=== PATIENT | female | born 2000 | race Caucasian/White ===

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

== ENCOUNTER 2022-04-01 09:43 | Emergency (ER) | payer MEDICAID ==
[~2022-04-01] VITALS: Ht 154.9 cm; Wt 74.8 kg
[2022-04-01 09:47] VITALS: BP 116/69
[2022-04-01 09:55] LABS: BILIRUBIN,URINE 2+ (NEGATIVE); CLARITY,URINE TURBID; COLOR,URINE YELLOW; GLUCOSE, URINE (UA) NEGATIVE (NEGATIVE); KETONES,URINE TRACE (NEGATIVE); LEUKOCYTE ESTERASE ,URINE NEGATIVE (NEGATIVE); NITRITE,URINE NEGATIVE (NEGATIVE); PH,URINE 6.5 (5-9); PROTEIN,URINE 1+ (NEGATIVE)
[2022-04-01] MEDS ORDERED: FAMOTIDINE 20 MG (PEPCID) TABLET PO STA (09:55)
[2022-04-01] MEDS ORDERED: PROMETHAZINE INJ 25 MG/ML (PHENERGAN) AMP IVP ONE (10:00)
[2022-04-01] MEDS ORDERED: D5 NS 1000 ML IV SOLUTION 1,000 ML IV ONE (10:00)
--- NOTE | 2022-04-01 10:00 | ED GI ---
General Chief Complaint: Abdominal/GI Problems Stated Complaint: VOMITING Source of Information: Patient Exam Limitations: No Limitations History of Present Illness Date Seen by Provider: Apr 01, 2022 Time Seen by Provider: 09:44 Initial Comments 22-year-old female with past medical history of chronic nausea coming in due to nausea and nonbloody nonbilious vomiting. She says she has been dealing with this intermittently for the past 3 years. She says she has been to the ER numerous times and had multiple CT scans and ultrasounds. She has had an upper GI scope as well which they found a hiatal hernia. She only takes omeprazole daily. This most recent episode started a couple days ago. Was able to get some yogurt down yesterday, but mostly has just been drinking water with no food. Has had some loose stools since she is only drinking water. Denies any cough, fever, chest pain, shortness of breath, rash, dysuria, or any other concerns. She says this feels similar to other episodes. She does have some abdominal cramping with it which improves after vomiting. Has Phenergan at home, but says she is unable to keep it down. LMP was 2 days ago. Allergies and Home Medications Allergies Coded Allergies: No Known Drug Allergies (Unverified , 03/16/19) Patient Home Medication List Home Medication List Reviewed: Yes Amoxicillin (Amoxicillin) 500 Mg Capsule, (Reported) Entered as Reported by: DENILSON STEVENS on 12/05/201955 Ibuprofen (Ibuprofen) 800 Mg Tablet, 800 MG PO Q8H PRN for PAIN Prescribed by: DIANE CHARLES on 11/26/20 09 Metronidazole (Metronidazole) 500 Mg Tablet, (Reported) Entered as Reported by: DENILSON STEVENS on 12/05/201955 Ondansetron (Ondansetron Odt) 4 Mg Tab.rapdis, 4 MG PO Q6H PRN for NAUSEA/VOMITING Prescribed by: DIANE CHARLES on 03/16/192117 Ondansetron (Ondansetron Odt) 4 Mg Tab.rapdis, 4 MG SL Q4H PRN for NAUSEA/VOMITING Prescribed by: PAULINE TORREZ on 07/01/21 0930 Ondansetron (Ondansetron Odt) 4 Mg Tab.rapdis, 4 MG PO Q6H PRN for NAUSEA/VOMITING-1ST LINE Prescribed by: WILEY LOZOYA on 09/29/21 0634 Ondansetron HCl (Ondansetron HCl) 4 Mg Tablet, (Reported) Entered as Reported by: DENILSON STEVENS on 12/05/201955 Pantoprazole Sodium (Pantoprazole Sodium) 40 Mg Tablet., (Reported) Entered as Reported by: DENILSON STEVENS on 12/05/201955 Promethazine HCl (Promethazine Tablet) 25 Mg Tablet, 25 MG PO Q6H PRN for AILEEN SEA/VOMITING-2ND LINE Prescribed by: WILEY LOZOYA on 09/29/21 0642 Promethazine HCl (Promethazine Tablet) 25 Mg Tablet, 25 MG PO Q6H PRN for NAUSEA/VOMITING Prescribed by: WILEY LOZOYA on 11/07/21 0818 Review of Systems Review of Systems Constitutional: No fever EENTM: No Blurred Vision Respiratory: Denies Cough Cardiovascular: Denies Chest Pain Gastrointestinal: Nausea, Vomiting Genitourinary: No Symptoms Reported Musculoskeletal: no symptoms reported Skin: no symptoms reported Psychiatric/Neurological: No Symptoms Reported Endocrine: No Symptoms Reported Hematologic/Lymphatic: No Symptoms Reported All Other Systems Reviewed Negative Unless Noted: Yes Past Uryvkzm-Yhhoad-Mpffop Hx Patient Social History Use of E-Cig and/or Vaping dev: Yes Immunizations Up To Date Tetanus Booster (TDap): Unknown PED Vaccines UTD: Yes First/Initial COVID19 Vaccinat: 01/2021 Second COVID19 Vaccination Eligio: 01/2021 Seasonal Allergies Seasonal Allergies: No Past Medical History Surgery/Hospitalization HX: HIATAL HERNIA Surgeries: Yes (D&C) Respiratory: No Cardiac: No Neurological: No Genitourinary: No Gastrointestinal: Yes Gastroesophageal Reflux, Hiatal Hernia Musculoskeletal: No Endocrine: No HEENT: No Cancer: No Psychosocial: No Integumentary: No Blood Disorders: No Physical Exam Vital Signs Vital Signs - First Documented 04/01/22 09:47 Temp 36.2 Pulse 88 Resp 16 B/P (MAP) 116/69 (85) Pulse Ox 98 O2 Delivery Room Air Capillary Refill : Height/Weight/BMI Height: 5'1.00" Weight: 140lbs. oz. 63.720495gh; 34.00 BMI Method:Stated General Appearance: WD/WN, no apparent distress HEENT: PERRL/EOMI, normal ENT inspection, pharynx normal Neck: non-tender, full range of motion, supple, normal inspection Respiratory: chest non-tender, lungs clear, normal breath sounds, no respiratory distress, no accessory muscle use Cardiovascular: regular rate, rhythm, no edema, no murmur Gastrointestinal: normal bowel sounds, non tender, soft; No distended, No guarding, No rebound Extremities: normal range of motion, non-tender, normal inspection, no pedal edema, no calf tenderness, normal capillary refill Back: normal inspection, no CVA tenderness Neurologic/Psychiatric: no motor/sensory deficits, alert, normal mood/affect Skin: normal color, warm/dry Lymphatic: no adenopathy Progress/Results/Core Measures Results/Orders Lab Results Laboratory Tests Test 04/01/22 09:46 04/01/22 10:00 Range/Units Urine Color YELLOW Urine Clarity TURBID Urine pH 6.5 5-9 Urine Specific Whittaker 1.025 H 1.016-1.022 Urine Protein 1+ H NEGATIVE Urine Glucose (UA) NEGATIVE NEGATIVE Urine Ketones TRACE H NEGATIVE Urine Nitrite NEGATIVE NEGATIVE Urine Bilirubin 2+ H NEGATIVE Urine Urobilinogen 1.0 < = 1.0 MG/DL Urine Leukocyte Esterase NEGATIVE NEGATIVE Urine RBC (Auto) TRACE-I H NEGATIVE Urine RBC NONE /HPF Urine WBC 0-2 /HPF Urine Squamous Epithelial Cells 10-25 H /HPF Urine Crystals NONE /LPF Urine Bacteria TRACE /HPF Urine Casts NONE /LPF Urine Mucus NEGATIVE /LPF Urine Culture Indicated NO Urine Opiates Screen NEGATIVE NEGATIVE Urine Oxycodone Screen NEGATIVE NEGATIVE Urine Methadone Screen NEGATIVE NEGATIVE Urine Propoxyphene Screen NEGATIVE NEGATIVE Urine Barbiturates Screen NEGATIVE NEGATIVE Ur Tricyclic Antidepressants Screen NEGATIVE NEGATIVE Urine Phencyclidine Screen NEGATIVE NEGATIVE Urine Amphetamines Screen NEGATIVE NEGATIVE Urine Methamphetamines Screen NEGATIVE NEGATIVE Urine Benzodiazepines Screen NEGATIVE NEGATIVE Urine Cocaine Screen NEGATIVE NEGATIVE Urine Cannabinoids Screen POSITIVE H NEGATIVE White Blood Count 9.7 4.3-11.0 10^3/uL Red Blood Count 4.23 3.80-5.11 10^6/uL Hemoglobin 12.4 11.5-16.0 g/dL Hematocrit 36 35-52 % Mean Corpuscular Volume 85 80-99 fL Mean Corpuscular Hemoglobin 29 25-34 pg Mean Corpuscular Hemoglobin Concent 34 32-36 g/dL Red Cell Distribution Width 12.3 10.0-14.5 % Platelet Count 229 130-400 10^3/uL Mean Platelet Volume 11.2 9.0-12.2 fL Immature Granulocyte % (Auto) 0 % Neutrophils (%) (Auto) 68 42-75 % Lymphocytes (%) (Auto) 22 12-44 % Monocytes (%) (Auto) 9 0-12 % Eosinophils (%) (Auto) 0 0-10 % Basophils (%) (Auto) 0 0-10 % Neutrophils # (Auto) 6.7 1.8-7.8 10^3/uL Lymphocytes # (Auto) 2.2 1.0-4.0 10^3/uL Monocytes # (Auto) 0.9 0.0-1.0 10^3/uL Eosinophils # (Auto) 0.0 0.0-0.3 10^3/uL Basophils # (Auto) 0.0 0.0-0.1 10^3/uL Immature Granulocyte # (Auto) 0.0 0.0-0.1 10^3/uL Sodium Level 140 135-145 MMOL/L Potassium Level 3.1 L 3.6-5.0 MMOL/L Chloride Level 104 98-107 MMOL/L Carbon Dioxide Level 24 21-32 MMOL/L Anion Gap 12 5-14 MMOL/L Blood Urea Nitrogen 10 7-18 MG/DL Creatinine 0.65 0.60-1.30 MG/DL Estimat Glomerular Filtration Rate 129 BUN/Creatinine Ratio 15 Glucose Level 104 70-105 MG/DL Calcium Level 9.2 8.5-10.1 MG/DL Corrected Calcium 9.1 8.5-10.1 MG/DL Total Bilirubin 0.5 0.1-1.0 MG/DL Aspartate Amino Transf (AST/SGOT) 12 5-34 U/L Alanine Aminotransferase (ALT/SGPT) 10 0-55 U/L Alkaline Phosphatase 72 40-136 U/L C-Reactive Protein 0.47 <0.50 MG/DL Total Protein 7.1 6.4-8.2 GM/DL Albumin 4.1 3.2-4.5 GM/DL Lipase 19 8-78 U/L My Orders Orders - WILEY LOZOYA MD Drug Screen Stat (Urine) (04/01/22 09:49) Ua Culture If Indicated (04/01/22 09:49) Urine Bedside (04/01/22 09:49) Cbc With Automated Diff (04/01/22 09:55) Comprehensive Metabolic Panel (04/01/22 09:55) Lipase (04/01/22 09:55) Crp Fs (04/01/22 09:55) Famotidine Tablet (Pepcid Tablet) (04/01/22 09:55) Ed Iv/Invasive Line Start (04/01/22 09:55) D5 Ns 1000 Ml Iv Solution (Dextrose 5%/0 (04/01/22 10:00) Promethazine Injection (Phenergan Injec (04/01/22 10:00) Medications Given in ED Current Medications Medications Dose Ordered Sig/Natali Route Start Time Stop Time Status Last Admin Dose Admin Dextrose/Sodium Chloride 1,000 ml @ 0 mls/hr Q0M ONCE IV 04/01/22 10:00 04/01/22 10:01 DC 04/01/22 10:06 1,000 MLS/HR Promethazine HCl 25 mg ONCE ONCE IVP 04/01/22 10:00 04/01/22 10:01 DC 04/01/22 10:06 25 MG Vital Signs/I&O 04/01/22 09:47 Temp 36.2 Pulse 88 Resp 16 B/P (MAP) 116/69 (85) Pulse Ox 98 O2 Delivery Room Air Progress Progress Note : Progress Note 22-year-old female with essentially cyclical vomiting coming in due to vomiting. ABCs were intact and vitals were stable on presentation. Physical exam reassuring including a soft and nontender abdomen. An IV was placed and basic labs were obtained and were significant for normal white blood cell count, and a CRP that is normal. Urinalysis with some blood and ketones but no signs of infection. She was given a liter of IV fluids as well as IV Phenergan with improvement in symptoms. test negative. Departure Impression Primary Impression: Cyclical vomiting with nausea Disposition: 01 HOME, SELF-CARE Condition: Stable Departure-Patient Inst. Referrals: ELDA BAUMAN MD (PCP) Primary Care Physician Patient Instructions: Nausea and Vomiting, Adult ED Add. Discharge Instructions: Try the Phenergan oral first, if he cannot keep it down then you can try the suppository. You can also try the [id number]-mqpvvsh Capzasin HP. Put a small dab on your abdomen and give it some time to work. You will have a tingling/slight burning sensation which means it is working. Your potassium was slightly low, so take your home potassium supplement for the next couple of days. Scripts Promethazine HCl (Promethazine Suppository) 25 Mg Supp.rect 25 MG RC Q6H PRN for NAUSEA/VOMITING-2ND LINE for 5 Days, #20 SUPP.RECT Do not mix with the oral promethazine. Take this if you cannot keep medicine down. Prov: WILEY LOZOYA MD 04/01/22 Promethazine HCl (Promethazine Tablet) 25 Mg Tablet 25 MG PO Q6H PRN for NAUSEA/VOMITING for 5 Days, #20 TAB 0 Refills Prov: WILEY LOZOYA MD 04/01/22 Work/School Note: Work Release Form Date Seen in the Emergency Department: Apr 01, 2022 Return to Work: Apr 02, 2022 Restrictions: No Restrictions WILEY LOZOYA MD Apr 01, 2022 10:00
[2022-04-01 10:15] LABS: BACTERIA,URINE TRACE /HPF; WBC,URINE 0-2 /HPF
[2022-04-01 10:17] LABS: BASOPHILS % (AUTO) 0 % (0-10); EOSINOPHILS % (AUTO) 0 % (0-10); HEMATOCRIT 36 % (35-52); HEMOGLOBIN 12.4 g/dL (11.5-16.0); LYMPHOCYTES # (AUTO) 2.2 10^3/uL (1.0-4.0); LYMPHOCYTES % (AUTO) 22 % (12-44); MEAN CORPUSCULAR HEMOGLOBIN 29 pg (25-34); MEAN CORPUSCULAR HGB CONC 34 g/dL (32-36); MEAN CORPUSCULAR VOLUME 85 fL (80-99); MEAN PLATELET VOLUME 11.2 fL (9.0-12.2); MONOCYTES # (AUTO) 0.9 10^3/uL (0.0-1.0); MONOCYTES % (AUTO) 9 % (0-12); NEUTROPHILS # (AUTO) 6.7 10^3/uL (1.8-7.8); NEUTROPHILS % (AUTO) 68 % (42-75); PLATELET COUNT 229 10^3/uL (130-400); WHITE BLOOD COUNT 9.7 10^3/uL (4.3-11.0)
[2022-04-01 10:25] LABS: AMPHETAMINE SCREEN, URINE NEGATIVE (NEGATIVE); BARBITURATE SCREEN URINE NEGATIVE (NEGATIVE); BENZODIAZEPINES SCREEN URINE NEGATIVE (NEGATIVE); CANNABINOID SCREEN, URINE POSITIVE (NEGATIVE); COCAINE SCREEN URINE NEGATIVE (NEGATIVE); METHADONE STAT NEGATIVE (NEGATIVE); OPIATE SCREEN URINE NEGATIVE (NEGATIVE); OXYCODONE STAT NEGATIVE (NEGATIVE); PROPOXYPHENE STAT NEGATIVE (NEGATIVE); TRICYCLIC ANTIDEPRESSANTS SCRE NEGATIVE (NEGATIVE)
[2022-04-01 10:38] LABS: POTASSIUM 3.1 MMOL/L (3.6-5.0)
[2022-04-01 10:39] LABS: ALBUMIN 4.1 GM/DL (3.2-4.5); BILIRUBIN,TOTAL 0.5 MG/DL (0.1-1.0); CALCIUM 9.2 MG/DL (8.5-10.1); CREATININE SERUM 0.65 MG/DL (0.60-1.30); TOTAL PROTEIN 7.1 GM/DL (6.4-8.2)
[2022-04-01] MEDS ORDERED: PROM25SU44 RC (10:49)
[2022-04-01] MEDS ORDERED: PROM25TA14 PO (10:49)
== END 2022-04-01 10:50 | disposition home or self-care (01) ==
LOC: EDUNIT# 09:43 → ER FS 09:44
DX: R11.15 Cyclical vomiting syndrome unrelated to migraine (principal); K21.9 Gastro-esophageal reflux disease without esophagitis; F17.290 Nicotine dependence, other tobacco product, uncomplicated; Z79.899 Other long term (current) drug therapy
CPT/HCPCS: 36415; 80053; 80306; 81000; 83690; 84703; 85025; 86141

== ENCOUNTER 2022-04-06 07:51 | Emergency (ER) | payer MEDICAID ==
[~2022-04-06] VITALS: Ht 154 cm; Wt 69.0 kg
[~2022-04-06 07:51] MED LIST changes: +PROM25SU44 RC
[2022-04-06 08:09] VITALS: BP 109/84
[2022-04-06] MEDS ORDERED: PANTOPRAZOLE 40 MG (PROTONIX) VIAL IV STA (08:13)
[2022-04-06] MEDS ORDERED: PROMETHAZINE INJ 25 MG/ML (PHENERGAN) AMP IVP STA (08:13)
[2022-04-06] MEDS ORDERED: NS IV 1000 ML 1,000 ML IV STA ×2 (08:13→09:12)
[2022-04-06] MEDS ORDERED: KETOROLAC 30 MG/ML VIAL IVP STA (08:13)
[2022-04-06 08:20] LABS: BASOPHILS # (AUTO) 0.1 10^3/uL (0.0-0.1); BASOPHILS % (AUTO) 0 % (0-10); EOSINOPHILS % (AUTO) 0 % (0-10); HEMATOCRIT 43 % (35-52); HEMOGLOBIN 15.6 g/dL (11.5-16.0); LYMPHOCYTES # (AUTO) 1.6 10^3/uL (1.0-4.0); LYMPHOCYTES % (AUTO) 11 % (12-44); MEAN CORPUSCULAR HEMOGLOBIN 30 pg (25-34); MEAN CORPUSCULAR HGB CONC 36 g/dL (32-36); MEAN CORPUSCULAR VOLUME 82 fL (80-99); MEAN PLATELET VOLUME 10.1 fL (9.0-12.2); MONOCYTES # (AUTO) 0.8 10^3/uL (0.0-1.0); MONOCYTES % (AUTO) 6 % (0-12); NEUTROPHILS # (AUTO) 12.3 10^3/uL (1.8-7.8); NEUTROPHILS % (AUTO) 83 % (42-75); PLATELET COUNT 335 10^3/uL (130-400); WHITE BLOOD COUNT 14.9 10^3/uL (4.3-11.0)
--- NOTE | 2022-04-06 08:22 | ED GI ---
General Chief Complaint: Abdominal/GI Problems Stated Complaint: VOMITING Source of Information: Patient, Old Records History of Present Illness Date Seen by Provider: Apr 06, 2022 Time Seen by Provider: 08:08 Initial Comments 22-year-old female presenting with complaints of recurrent nausea, vomiting, abdominal pain. She states that she has had episodes like this for at least 3 years. She feels like her primary doctor is not doing anything to help her and refuses to refer her to a GI specialist. Patient was seen on April 01 for recurrent symptoms at that time. She states that ever since she was seen she has continued to have vomiting and abdominal pain. She claims that she cannot keep anything down and she has not been able to sleep because of her symptoms. Both patient and family in the room are stating that "something needs to get figured out". Family member in the room claims that they are trying to get her up to [place] to see a specialist but have not been able to do it because they report that the primary care has not referred them. She states that she has no new symptoms or change from her usual presentation. She has had multiple imaging tests and blood work done in the past. She does tend to run low on her potassium with her frequent episodes of nausea and vomiting. Timing/Duration: 1 Week Severity/Quality: Severe, Burning, Cramping, Sharp Location: Generalized Abdomen Activities at Onset: None Modifying Factors: Worsens With Eating, Worsens With Palpation Associated Symptoms: No Back Pain, No Chest Pain, No Diaphoresis, No Fever/Chills, No Fatigue, No Headache; Heartburn, Nausea/Vomiting; No Rash, No Shortness of Air, No Swelling/Mass in Abdomen, No Syncope, No Weakness Allergies and Home Medications Allergies Coded Allergies: No Known Drug Allergies (Unverified , 03/16/19) Patient Home Medication List Home Medication List Reviewed: Yes Amoxicillin (Amoxicillin) 500 Mg Capsule, (Reported) Entered as Reported by: DENILSON STEVENS on 12/05/201955 Ibuprofen (Ibuprofen) 800 Mg Tablet, 800 MG PO Q8H PRN for PAIN Prescribed by: DIANE CHARLES on 11/26/20 0952 Metronidazole (Metronidazole) 500 Mg Tablet, (Reported) Entered as Reported by: DENILSON STEVENS on 12/05/201955 Ondansetron (Ondansetron Odt) 4 Mg Tab.rapdis, 4 MG PO Q6H PRN for NAUSEA/VOMITING Prescribed by: DIANE TEJADAYART on 03/16/19 2118 Ondansetron (Ondansetron Odt) 4 Mg Tab.rapdis, 4 MG SL Q4H PRN for NAUSEA/VOMITING Prescribed by: PAULINE TORREZ on 07/01/21 0930 Ondansetron (Ondansetron Odt) 4 Mg Tab.rapdis, 4 MG PO Q6H PRN for NAUSEA/VOMITING-1ST LINE Prescribed by: WILEY LOZOYA on 09/29/21 0634 Ondansetron (Ondansetron Odt) 4 Mg Tab.rapdis, 4 MG PO Q6H PRN for NAUSEA/VOMITING Prescribed by: DIANE CARREONRT on 04/06/22 100 Ondansetron HCl (Ondansetron HCl) 4 Mg Tablet, (Reported) Entered as Reported by: DENILSON STEVENS on 12/05/201955 Pantoprazole Sodium (Pantoprazole Sodium) 40 Mg Tablet.dr (Reported) Entered as Reported by: DENILSON STEVENS on 12/05/201955 Promethazine HCl (Promethazine Tablet) 25 Mg Tablet, 25 MG PO Q6H PRN for NAUSEA/VOMITING-2ND LINE Prescribed by: WILEY LOZOYA on 09/29/21 0642 Promethazine HCl (Promethazine Tablet) 25 Mg Tablet, 25 MG PO Q6H PRN for NAUSEA/VOMITING Prescribed by: WILEY LOZOYA on 04/01/22 1049 Promethazine HCl (Promethazine Suppository) 25 Mg Supp.rect, 25 MG RC Q6H PRN for NAUSEA/VOMITING-2ND LINE Prescribed by: WILEY LOZOYA on 04/01/22 1049 Review of Systems Review of Systems Constitutional: No chills, No fever EENTM: No Symptoms Reported Respiratory: No Symptoms Reported Cardiovascular: Denies Palpitations, Denies Syncope Gastrointestinal: See HPI Genitourinary: Denies Pain Musculoskeletal: no symptoms reported Skin: No rash Psychiatric/Neurological: Denies Headache Endocrine: No Symptoms Reported Hematologic/Lymphatic: No Symptoms Reported Past Lotnpbo-Wzqlyb-Shhpfs Hx Patient Social History Tobacco Use?: Yes Use of E-Cig and/or Vaping dev: Yes E-Cig or Vaping type used: Nicotine Substance use?: Yes Substance type: Marijuana Substance frequency: Several times a month Alcohol Use?: No Immunizations Up To Date Tetanus Booster (TDap): Unknown PED Vaccines UTD: Yes First/Initial COVID19 Vaccinat: 01/2021 Second COVID19 Vaccination Eligio: 01/2021 Third COVID19 Vaccination Date: 01/2021 Seasonal Allergies Seasonal Allergies: No Past Medical History Surgery/Hospitalization HX: HIATAL HERNIA,Cyclic Vomiting Surgeries: Yes (D&C) Respiratory: No Cardiac: No Neurological: No Genitourinary: No Gastrointestinal: Yes Gastroesophageal Reflux, Hiatal Hernia Musculoskeletal: No Endocrine: No HEENT: No Cancer: No Psychosocial: No Integumentary: No Blood Disorders: No Physical Exam Vital Signs Vital Signs - First Documented 04/06/22 08:09 Temp 36.5 Pulse 87 Resp 16 B/P (MAP) 109/84 (92) Pulse Ox 97 O2 Delivery Room Air Capillary Refill : Height/Weight/BMI Height: 5'1.00" Weight: 140lbs. oz. 63.217866sx; 31.00 BMI Method:Stated General Appearance: WD/WN, mild distress HEENT: PERRL/EOMI, pharynx normal Neck: non-tender, full range of motion, supple, normal inspection Respiratory: chest non-tender, lungs clear, normal breath sounds, no respiratory distress, no accessory muscle use Cardiovascular: normal peripheral pulses, regular rate, rhythm; No tachycardia Gastrointestinal: normal bowel sounds, soft, no pulsatile mass; No distended; guarding; No rebound; tenderness (Diffuse) Rectal: deferred Extremities: normal range of motion, non-tender, normal capillary refill Neurologic/Psychiatric: rn ante partum II-XII nml as tested, alert, oriented x 3, other (Flat affect) Skin: normal color, warm/dry Progress/Results/Core Measures Results/Orders Lab Results Laboratory Tests Test 04/06/22 08:00 Range/Units White Blood Count 14.9 H 4.3-11.0 10^3/uL Red Blood Count 5.28 H 3.80-5.11 10^6/uL Hemoglobin 15.6 # 11.5-16.0 g/dL Hematocrit 43 35-52 % Mean Corpuscular Volume 82 80-99 fL Mean Corpuscular Hemoglobin 30 25-34 pg Mean Corpuscular Hemoglobin Concent 36 32-36 g/dL Red Cell Distribution Width 11.9 10.0-14.5 % Platelet Count 335 130-400 10^3/uL Mean Platelet Volume 10.1 9.0-12.2 fL Immature Granulocyte % (Auto) 1 % Neutrophils (%) (Auto) 83 H 42-75 % Lymphocytes (%) (Auto) 11 L 12-44 % Monocytes (%) (Auto) 6 0-12 % Eosinophils (%) (Auto) 0 0-10 % Basophils (%) (Auto) 0 0-10 % Neutrophils # (Auto) 12.3 H 1.8-7.8 10^3/uL Lymphocytes # (Auto) 1.6 1.0-4.0 10^3/uL Monocytes # (Auto) 0.8 0.0-1.0 10^3/uL Eosinophils # (Auto) 0.0 0.0-0.3 10^3/uL Basophils # (Auto) 0.1 0.0-0.1 10^3/uL Immature Granulocyte # (Auto) 0.1 0.0-0.1 10^3/uL Neutrophils % (Manual) 88 % Lymphocytes % (Manual) 1 % Monocytes % (Manual) 1 % Sodium Level 137 135-145 MMOL/L Potassium Level 3.1 L 3.6-5.0 MMOL/L Chloride Level 94 L 98-107 MMOL/L Carbon Dioxide Level 26 21-32 MMOL/L Anion Gap 17 H 5-14 MMOL/L Blood Urea Nitrogen 16 7-18 MG/DL Creatinine 0.77 0.60-1.30 MG/DL Estimat Glomerular Filtration Rate 113 BUN/Creatinine Ratio 21 Glucose Level 97 70-105 MG/DL Calcium Level 9.6 8.5-10.1 MG/DL Corrected Calcium 8.5-10.1 MG/DL Total Bilirubin 0.8 0.1-1.0 MG/DL Aspartate Amino Transf (AST/SGOT) 12 5-34 U/L Alanine Aminotransferase (ALT/SGPT) 11 0-55 U/L Alkaline Phosphatase 75 40-136 U/L C-Reactive Protein 0.60 H <0.50 MG/DL Total Protein 7.9 6.4-8.2 GM/DL Albumin 4.6 H 3.2-4.5 GM/DL Lipase 29 8-78 U/L Serum Test, Qualitative NEGATIVE NEGATIVE My Orders Orders - DIANE CHARLES MD Comprehensive Metabolic Panel (04/06/22 08:13) Lipase (04/06/22 08:13) Ed Iv/Invasive Line Start (04/06/22 08:13) Cbc With Automated Diff (04/06/22 08:13) Crp Fs (04/06/22 08:13) Ns Iv 1000 Ml (Sodium Chloride 0.9%) (04/06/22 08:13) Promethazine Injection (Phenergan Injec (04/06/22 08:13) Ketorolac Injection (Toradol Injection) (04/06/22 08:13) Pantoprazole Injection (Protonix Injecti (04/06/22 08:13) Hcg,Qualitative Serum (04/06/22 08:20) Manual Differential (04/06/22 08:00) Ns Iv 1000 Ml (Sodium Chloride 0.9%) (04/06/22 09:12) Potassium Cl 10meq/50ml Ivpb (Kcl 10 Meq (04/06/22 09:12) Ondansetron Injection (Zofran Injectio (04/06/22 09:17) Lorazepam Tablet (Ativan Tablet) (04/06/22 09:17) Vital Signs/I&O 04/06/22 08:09 Temp 36.5 Pulse 87 Resp 16 B/P (MAP) 109/84 (92) Pulse Ox 97 O2 Delivery Room Air Progress Progress Note #1: Progress Note Since patient advises that this feels similar to her usual episodes and there are no new symptoms well defer imaging. Obtain basic labs and electrolytes and urinalysis. Order normal saline 1 L IV fluid bolus for hydration. Pantoprazole 40 mg IV x1 for heartburn and reflux with gastritis. Toradol for diffuse pain. Phenergan 25 mg IV for nausea and vomiting. Advised that from the emergency department she will not be finding a new answers for her chronic symptoms and she will have to see a specialist for that. Progress Note #2: Progress Note She does have mild elevation of her white blood cell count to 14.9 today. Her chemistry panel continues to show hypokalemia at 3.1. She has no acute signs of severe dehydration such as renal failure. She does have mild elevation of her CRP. She had a negative urine test and a negative lipase. She was given a second liter of normal saline and 10 mill equivalents of potassium IV. Progress Note #3: Progress Note Patient had severe burning and irritation from the potassium going IV. She demanded that her IV be removed and she wanted to leave. As she had had no emesis here in the ED will discharge with a prescription for Zofran. Also given name of Dr. Diaz gerber from [facility] that she could try and get in with about her cyclic vomiting. She would either have to go directly to the emergency department at [facility] or have her primary refer her since she has Medicaid. Departure Impression Primary Impression: Cyclical vomiting with nausea Additional Impression: Hypokalemia Disposition: HOME, SELF-CARE Condition: Stable Departure-Patient Inst. Decision time for Depature: 10:02 Referrals: ELDA BAUMAN MD (PCP) Primary Care Physician Patient Instructions: High Potassium Diet, Hypokalemia (DC), Nausea and Vomiting, Adult ED Add. Discharge Instructions: Let your primary care doctor know that you are having worsening symptoms and it was suggested that you get referred to a GI specialist. You would need a re ferral from your primary care provider to be able to go see a GI specialist. Try to continue to sip on fluids and ice chips or popsicles to help get small amounts of fluids in your system at a time. Another thing you could consider doing would be consider going directly to [facility] emergency department and then you might be able to see GI or get help from specialist in the treatment of Cyclic Vomiting Syndrome. Dr. Diaz Gerber is a doctor at that does have some expertise in this area. All discharge instructions reviewed with patient and/or family. Voiced understanding. Scripts Ondansetron (Ondansetron Odt) 4 Mg Tab.rapdis 4 MG PO Q6H PRN for NAUSEA/VOMITING for 5 Days, #20 TAB 0 Refills Prov: DIANE CHARLES MD 04/06/22 DIANE CHARLES MD Apr 06, 2022 08:22
[2022-04-06 08:37] LABS: ALANINE AMINOTRANSFERASE 11 U/L (0-55); ALBUMIN 4.6 GM/DL (3.2-4.5); ALKALINE PHOSPHATASE 75 U/L (40-136); BILIRUBIN,TOTAL 0.8 MG/DL (0.1-1.0); BUN/CREATININE RATIO 21; CALCIUM 9.6 MG/DL (8.5-10.1); CARBON DIOXIDE 26 MMOL/L (21-32); CHLORIDE 94 MMOL/L (98-107); CREATININE SERUM 0.77 MG/DL (0.60-1.30); GFR ESTIMATED 113; GLUCOSE 97 MG/DL (70-105); LIPASE 29 U/L (8-78); POTASSIUM 3.1 MMOL/L (3.6-5.0); SODIUM 137 MMOL/L (135-145); TOTAL PROTEIN 7.9 GM/DL (6.4-8.2)
[2022-04-06 08:47] LABS: LYMPHOCYTES % (MANUAL) 1 %; MONOCYTES % (MANUAL) 1 %; NEUTROPHILS % (MANUAL) 88 %
[2022-04-06] MEDS ORDERED: POTASSIUM CL 10MEQ/50ML IVPB 50 ML IV STA (09:12)
[2022-04-06] MEDS ORDERED: ONDANSETRON 4 MG/2 ML (SDV) Z0FRAN IVP STA (09:17)
[2022-04-06] MEDS ORDERED: LORazepam 0.5 MG (ATIVAN) TABLET PO STA (09:17)
[2022-04-06] MEDS ORDERED: ONDA4TAB11 PO (10:03)
== END 2022-04-06 10:10 | disposition home or self-care (01) ==
LOC: EDUNIT# 07:51 → ER FS 07:53
DX: E87.6 Hypokalemia (principal); R11.15 Cyclical vomiting syndrome unrelated to migraine; R11.0 Nausea; D72.829 Elevated white blood cell count, unspecified; R79.82 Elevated C-reactive protein (CRP); F17.290 Nicotine dependence, other tobacco product, uncomplicated
CPT/HCPCS: 36415; 80053; 83690; 84703; 85007; 85027; 86141

== ENCOUNTER 2022-05-13 13:03 | Emergency (ER) | payer MEDICAID ==
[~2022-05-13] VITALS: Ht 154.9 cm; Wt 71.7 kg
--- NOTE | 2022-05-13 13:13 | ED Abdominal Pain ---
General Chief Complaint: Abdominal/GI Problems Stated Complaint: VOMITING History of Present Illness Date Seen by Provider: May 13, 2022 Time Seen by Provider: 13:13 Initial Comments Pt left without being seen due to not wanting to wait due to busy ER Allergies and Home Medications Allergies Coded Allergies: No Known Drug Allergies (Unverified , 03/16/19) Patient Home Medication List Home Medication List Reviewed: Yes Amoxicillin (Amoxicillin) 500 Mg Capsule, (Reported) Entered as Reported by: DENILSON STEVENS on 12/05/201955 Ibuprofen (Ibuprofen) 800 Mg Tablet, 800 MG PO Q8H PRN for PAIN Prescribed by: DIANE Henry ENYART on 11/26/20 0952 Metronidazole (Metronidazole) 500 Mg Tablet, (Reported) Entered as Reported by: DENILSON STEVENS on 12/05/201955 Ondansetron (Ondansetron Odt) 4 Mg Tab.rapdis, 4 MG PO Q6H PRN for NAUSEA/VOMITING Prescribed by: DIANE Henry ENYART on 03/16/19 2118 Ondansetron (Ondansetron Odt) 4 Mg Tab.rapdis, 4 MG SL Q4H PRN for NAUSEA/VOMITING Prescribed by: PAULINE TORREZ on 07/01/21 0930 Ondansetron (Ondansetron Odt) 4 Mg Tab.rapdis, 4 MG PO Q6H PRN for NAUSEA/VOMITING-1ST LINE Prescribed by: WILEY LOZOYA on 09/29/21 0634 Ondansetron (Ondansetron Odt) 4 Mg Tab.rapdis, 4 MG PO Q6H PRN for NAUSEA/VOMITING Prescribed by: DIANE TEJADAYART on 04/06/22 1003 Ondansetron HCl (Ondansetron HCl) 4 Mg Tablet, (Reported) Entered as Reported by: DENILSON STEVENS on 12/05/201955 Pantoprazole Sodium (Pantoprazole Sodium) 40 Mg Tablet., (Reported) Entered as Reported by: DENILSON STEVENS on 12/05/201955 Promethazine HCl (Promethazine Tablet) 25 Mg Tablet, 25 MG PO Q6H PRN for NAUSEA/VOMITING-2ND LINE Prescribed by: WILEY LOZOYA on 09/29/21 0642 Promethazine HCl (Promethazine Tablet) 25 Mg Tablet, 25 MG PO Q6H PRN for NAUSEA/VOMITING Prescribed by: WILEY LOZOYA on 04/01/22 1049 Promethazine HCl (Promethazine Suppository) 25 Mg Supp.rect, 25 MG RC Q6H PRN for NAUSEA/VOMITING-2ND LINE Prescribed by: WILEY LOZOYA on 04/01/22 1049 Review of Systems Review of Systems Constitutional: no symptoms reported Past Ztiwcar-Sotvjj-Yhudwn Hx Immunizations Up To Date Tetanus Booster (TDap): Unknown PED Vaccines UTD: Yes First/Initial COVID19 Vaccinat: 01/2021 Second COVID19 Vaccination Eligio: 01/2021 Third COVID19 Vaccination Date: 01/2021 Seasonal Allergies Seasonal Allergies: No Past Medical History Surgery/Hospitalization HX: HIATAL HERNIA,Cyclic Vomiting Surgeries: Yes (D&C) Respiratory: No Cardiac: No Neurological: No Genitourinary: No Gastrointestinal: Yes Gastroesophageal Reflux, Hiatal Hernia Musculoskeletal: No Endocrine: No HEENT: No Cancer: No Psychosocial: No Integumentary: No Blood Disorders: No Physical Exam Vital Signs Vital Signs - First Documented 05/13/22 13:16 Temp 36.5 Pulse 64 Resp 14 B/P (MAP) 117/64 (81) Pulse Ox 100 O2 Delivery Room Air Capillary Refill : Height/Weight/BMI Height: 5'1.00" Weight: 140lbs. oz. 63.306934ro; 29.00 BMI Method:Stated General Appearance: WD/WN (Did not get a chance to examine pt) Progress/Results/Core Measures Results/Orders Lab Results Laboratory Tests Test 05/13/22 13:16 05/13/22 13:45 Range/Units Urine Color YELLOW Urine Clarity SL CLOUDY Urine pH 6.5 5-9 Urine Specific [place] 1.015 L 1.016-1.022 Urine Protein TRACE H NEGATIVE Urine Glucose (UA) NEGATIVE NEGATIVE Urine Ketones TRACE H NEGATIVE Urine Nitrite NEGATIVE NEGATIVE Urine Bilirubin NEGATIVE NEGATIVE Urine Urobilinogen 0.2 < = 1.0 MG/DL Urine Leukocyte Esterase NEGATIVE NEGATIVE Urine RBC (Auto) NEGATIVE NEGATIVE Urine RBC NONE /HPF Urine WBC 0-2 /HPF Urine Squamous Epithelial Cells 2-5 /HPF Urine Crystals NONE /LPF Urine Bacteria FEW H /HPF Urine Casts NONE /LPF Urine Mucus MODERATE H /LPF Urine Culture Indicated NO Urine Test NEGATIVE NEGATIVE Urine Opiates Screen NEGATIVE NEGATIVE Urine Oxycodone Screen NEGATIVE NEGATIVE Urine Methadone Screen NEGATIVE NEGATIVE Urine Propoxyphene Screen NEGATIVE NEGATIVE Urine Barbiturates Screen NEGATIVE NEGATIVE Ur Tricyclic Antidepressants Screen NEGATIVE NEGATIVE Urine Phencyclidine Screen NEGATIVE NEGATIVE Urine Amphetamines Screen NEGATIVE NEGATIVE Urine Methamphetamines Screen NEGATIVE NEGATIVE Urine Benzodiazepines Screen NEGATIVE NEGATIVE Urine Cocaine Screen NEGATIVE NEGATIVE Urine Cannabinoids Screen POSITIVE H NEGATIVE White Blood Count 11.8 H 4.3-11.0 10^3/uL Red Blood Count 4.42 3.80-5.11 10^6/uL Hemoglobin 12.8 11.5-16.0 g/dL Hematocrit 38 35-52 % Mean Corpuscular Volume 85 80-99 fL Mean Corpuscular Hemoglobin 29 25-34 pg Mean Corpuscular Hemoglobin Concent 34 32-36 g/dL Red Cell Distribution Width 12.6 10.0-14.5 % Platelet Count 308 130-400 10^3/uL Mean Platelet Volume 9.9 9.0-12.2 fL Immature Granulocyte % (Auto) 0 % Neutrophils (%) (Auto) 78 H 42-75 % Lymphocytes (%) (Auto) 16 12-44 % Monocytes (%) (Auto) 5 0-12 % Eosinophils (%) (Auto) 0 0-10 % Basophils (%) (Auto) 0 0-10 % Neutrophils # (Auto) 9.2 H 1.8-7.8 10^3/uL Lymphocytes # (Auto) 1.9 1.0-4.0 10^3/uL Monocytes # (Auto) 0.6 0.0-1.0 10^3/uL Eosinophils # (Auto) 0.0 0.0-0.3 10^3/uL Basophils # (Auto) 0.0 0.0-0.1 10^3/uL Immature Granulocyte # (Auto) 0.0 0.0-0.1 10^3/uL Sodium Level 139 135-145 MMOL/L Potassium Level 3.7 3.6-5.0 MMOL/L Chloride Level 103 98-107 MMOL/L Carbon Dioxide Level 23 21-32 MMOL/L Anion Gap 13 5-14 MMOL/L Blood Urea Nitrogen 8 7-18 MG/DL Creatinine 0.65 0.60-1.30 MG/DL Estimat Glomerular Filtration Rate 129 BUN/Creatinine Ratio 12 Glucose Level 95 70-105 MG/DL Calcium Level 9.2 8.5-10.1 MG/DL Corrected Calcium 9.0 8.5-10.1 MG/DL Magnesium Level 1.8 1.6-2.4 MG/DL Total Bilirubin 0.4 0.1-1.0 MG/DL Aspartate Amino Transf (AST/SGOT) 13 5-34 U/L Alanine Aminotransferase (ALT/SGPT) 11 0-55 U/L Alkaline Phosphatase 78 40-136 U/L Total Protein 6.9 6.4-8.2 GM/DL Albumin 4.2 3.2-4.5 GM/DL Lipase 31 8-78 U/L Serum Alcohol < 10 <10 MG/DL My Orders Orders - BORA GARCIA MD Ua Culture If Indicated (05/13/22 13:12) Urine Bedside (05/13/22 13:12) Alcohol (05/13/22 13:28) Cbc With Automated Diff (05/13/22 13:28) Comprehensive Metabolic Panel (05/13/22 13:28) Drug Screen Stat (Urine) (05/13/22 13:28) Lipase (05/13/22 13:28) Magnesium (05/13/22 13:28) Ondansetron Injection (Zofran Injectio (05/13/22 13:30) Ed Iv/Invasive Line Start (05/13/22 13:29) Ns Iv 1000 Ml (Sodium Chloride 0.9%) (05/13/22 13:30) Hcg,Qualitative Urine (05/13/22 14:35) Iohexol Injection (Omnipaque 350 Mg/Ml 1 (05/13/22 15:00) Received Contrast (Hold Metformin- Contr (05/13/22 15:00) Sodium Chloride Flush (Catheter Flush Sy (05/13/22 15:00) Ns (Ivpb) (Sodium Chloride 0.9% Ivpb Bag (05/13/22 15:00) Vital Signs/I&O 05/13/22 13:16 Temp 36.5 Pulse 64 Resp 14 B/P (MAP) 117/64 (81) Pulse Ox 100 O2 Delivery Room Air Departure Impression Primary Impression: Patient left without being seen Disposition: AGAINST MEDICAL ADVICE Condition: Against Medical Advice Departure-Patient Inst. Referrals: ELDA BAUMAN MD (PCP) Primary Care Physician BORA GARCIA MD May 13, 2022 13:13
[2022-05-13 13:16] VITALS: BP 117/64
[2022-05-13] MEDS ORDERED: ONDANSETRON 4 MG/2 ML (SDV) Z0FRAN IVP ONE (13:30)
[2022-05-13] MEDS ORDERED: NS IV 1000 ML 1,000 ML IV SCH (13:30)
[2022-05-13 13:51] LABS: BASOPHILS % (AUTO) 0 % (0-10); EOSINOPHILS % (AUTO) 0 % (0-10); HEMATOCRIT 38 % (35-52); HEMOGLOBIN 12.8 g/dL (11.5-16.0); LYMPHOCYTES # (AUTO) 1.9 10^3/uL (1.0-4.0); LYMPHOCYTES % (AUTO) 16 % (12-44); MEAN CORPUSCULAR HEMOGLOBIN 29 pg (25-34); MEAN CORPUSCULAR HGB CONC 34 g/dL (32-36); MEAN CORPUSCULAR VOLUME 85 fL (80-99); MEAN PLATELET VOLUME 9.9 fL (9.0-12.2); MONOCYTES # (AUTO) 0.6 10^3/uL (0.0-1.0); MONOCYTES % (AUTO) 5 % (0-12); NEUTROPHILS # (AUTO) 9.2 10^3/uL (1.8-7.8); NEUTROPHILS % (AUTO) 78 % (42-75); PLATELET COUNT 308 10^3/uL (130-400); WHITE BLOOD COUNT 11.8 10^3/uL (4.3-11.0)
[2022-05-13 14:23] LABS: CARBON DIOXIDE 23 MMOL/L (21-32); CHLORIDE 103 MMOL/L (98-107); SODIUM 139 MMOL/L (135-145)
[2022-05-13 14:24] LABS: ALANINE AMINOTRANSFERASE 11 U/L (0-55); ALBUMIN 4.2 GM/DL (3.2-4.5); ALKALINE PHOSPHATASE 78 U/L (40-136); BILIRUBIN,TOTAL 0.4 MG/DL (0.1-1.0); BUN/CREATININE RATIO 12; CALCIUM 9.2 MG/DL (8.5-10.1); CREATININE SERUM 0.65 MG/DL (0.60-1.30); GFR ESTIMATED 129; GLUCOSE 95 MG/DL (70-105); LIPASE 31 U/L (8-78); MAGNESIUM 1.8 MG/DL (1.6-2.4); POTASSIUM 3.7 MMOL/L (3.6-5.0); TOTAL PROTEIN 6.9 GM/DL (6.4-8.2)
[2022-05-13 14:52] LABS: BILIRUBIN,URINE NEGATIVE (NEGATIVE); CLARITY,URINE SL CLOUDY; COLOR,URINE YELLOW; GLUCOSE, URINE (UA) NEGATIVE (NEGATIVE); KETONES,URINE TRACE (NEGATIVE); LEUKOCYTE ESTERASE ,URINE NEGATIVE (NEGATIVE); NITRITE,URINE NEGATIVE (NEGATIVE); PH,URINE 6.5 (5-9); PROTEIN,URINE TRACE (NEGATIVE)
[2022-05-13] MEDS ORDERED: CATHETER FLUSH 10 ML SYR IV PRN (15:00)
[2022-05-13] MEDS ORDERED: HOLD METFORMIN - RECEIVED CONTRAST 20 ML VIAL IV SCH (15:00)
[2022-05-13] MEDS ORDERED: IOHEXOL 350 MG/ML 100 ML (OMNIPAQUE 350) VIAL IV ONE (15:00)
[2022-05-13] MEDS ORDERED: NS 100 ML (IVPB) BAG IV ONE (15:00)
[2022-05-13 15:03] LABS: AMPHETAMINE SCREEN, URINE NEGATIVE (NEGATIVE); BARBITURATE SCREEN URINE NEGATIVE (NEGATIVE); BENZODIAZEPINES SCREEN URINE NEGATIVE (NEGATIVE); CANNABINOID SCREEN, URINE POSITIVE (NEGATIVE); COCAINE SCREEN URINE NEGATIVE (NEGATIVE); METHADONE STAT NEGATIVE (NEGATIVE); OPIATE SCREEN URINE NEGATIVE (NEGATIVE); OXYCODONE STAT NEGATIVE (NEGATIVE); PROPOXYPHENE STAT NEGATIVE (NEGATIVE); TRICYCLIC ANTIDEPRESSANTS SCRE NEGATIVE (NEGATIVE)
[2022-05-13 15:09] LABS: BACTERIA,URINE FEW /HPF; WBC,URINE 0-2 /HPF
== END 2022-05-13 14:53 | disposition left against medical advice (07) ==
LOC: EDUNIT# 13:03 → ER FS 13:04
DX: R10.9 Unspecified abdominal pain (principal)
CPT/HCPCS: 36415; 80053; 80306; 80320; 81000; 83690; 83735; 84703; 85025; 96374

== ENCOUNTER 2022-06-29 10:38 | Emergency (ER) | payer MEDICAID ==
[~2022-06-29] VITALS: Ht 154.9 cm; Wt 73.5 kg
--- NOTE | 2022-06-29 10:46 | ED GI ---
General Stated Complaint: VOMITING,NAUSEA History of Present Illness Date Seen by Provider: Jun 29, 2022 Time Seen by Provider: 10:41 Initial Comments 22-year-old female presents with nausea vomiting abdominal pain. This is chronic in nature has been going on and off for at least 3 years. Patient reports her last menstrual period was about a month ago. She denies any recent alcohol or marijuana use she reports that this episode of vomiting started this morning. Patient's last menstrual period was 05/31/2022 Allergies and Home Medications Allergies Coded Allergies: No Known Drug Allergies (Unverified , 03/16/19) Patient Home Medication List Home Medication List Reviewed: Yes Amoxicillin (Amoxicillin) 500 Mg Capsule, (Reported) Entered as Reported by: DENILSON STEVENS on 12/05/201955 Doxylamine/Pyridoxine HCl (Diclegis Dr 10-10 mg Tablet) 10 Mg-10 Mg Tablet.dr, 1 EACH PO Q6H PRN for NAUSEA/VOMITING Prescribed by: LOS PINEDA on 06/29/22 1056 Ibuprofen (Ibuprofen) 800 Mg Tablet, 800 MG PO Q8H PRN for PAIN Prescribed by: DIANE CHARLES on 11/26/20 0952 Metronidazole (Metronidazole) 500 Mg Tablet, (Reported) Entered as Reported by: DENILSON STEVENS on 12/05/201955 Ondansetron (Ondansetron Odt) 4 Mg Tab.rapdis, 4 MG PO Q6H PRN for NAUSEA/VOMITING Prescribed by: DIANE TEJADAYART on 03/16/19 2118 Ondansetron (Ondansetron Odt) 4 Mg Tab.rapdis, 4 MG SL Q4H PRN for NAUSEA/VOMITING Prescribed by: PAULINE TORREZ on 07/01/21 0930 Ondansetron (Ondansetron Odt) 4 Mg Tab.rapdis, 4 MG PO Q6H PRN for NAUSEA/VOMITING-1ST LINE Prescribed by: WILEY LOZOYA on 09/29/21 0634 Ondansetron (Ondansetron Odt) 4 Mg Tab.rapdis, 4 MG PO Q6H PRN for NAUSEA/VOMITING Prescribed by: DIANE Henry ENYART on 04/06/22 1003 Ondansetron HCl (Ondansetron HCl) 4 Mg Tablet, (Reported) Entered as Reported by: DENILSON STEVENS on 12/05/201955 Pantoprazole Sodium (Pantoprazole Sodium) 40 Mg Tablet.dr (Reported) Entered as Reported by: DENILSON STEVENS on 12/05/201955 Promethazine HCl (Promethazine Tablet) 25 Mg Tablet, 25 MG PO Q6H PRN for NAUSEA/VOMITING-2ND LINE Prescribed by: WILEY LOZOYA on 09/29/21 0642 Promethazine HCl (Promethazine Tablet) 25 Mg Tablet, 25 MG PO Q6H PRN for NAUSEA/VOMITING Prescribed by: WILEY LOZOYA on 04/01/22 1049 Promethazine HCl (Promethazine Suppository) 25 Mg Supp.rect, 25 MG RC Q6H PRN for NAUSEA/VOMITING-2ND LINE Prescribed by: WILEY LOZOYA on 04/01/22 1049 Review of Systems Review of Systems Constitutional: no symptoms reported Respiratory: No Symptoms Reported Gastrointestinal: Abdominal Pain (Diffuse from), Nausea, Other Genitourinary: No Symptoms Reported Skin: no symptoms reported Psychiatric/Neurological: No Symptoms Reported Endocrine: No Symptoms Reported Past Pjqlxyj-Qgfwgz-Juttvk Hx Immunizations Up To Date Tetanus Booster (TDap): Unknown PED Vaccines UTD: Yes First/Initial COVID19 Vaccinat: 01/2021 Second COVID19 Vaccination Eligio: 01/2021 Third COVID19 Vaccination Date: 01/2021 Seasonal Allergies Seasonal Allergies: No Past Medical History Surgery/Hospitalization HX: HIATAL HERNIA,Cyclic Vomiting Surgeries: Yes (D&C) Respiratory: No Cardiac: No Neurological: No Genitourinary: No Gastrointestinal: Yes Gastroesophageal Reflux, Hiatal Hernia Musculoskeletal: No Endocrine: No HEENT: No Cancer: No Psychosocial: No Integumentary: No Blood Disorders: No Physical Exam Vital Signs Vital Signs - First Documented 06/29/22 10:39 Temp 36.5 Pulse 80 Resp 19 B/P (MAP) 136/74 (94) O2 Delivery Room Air Capillary Refill : Height/Weight/BMI Height: 5'1.00" Weight: 140lbs. oz. 63.757385bu; 29.00 BMI Method:Stated General Appearance: WD/WN Neck: full range of motion, supple Respiratory: lungs clear, normal breath sounds, no respiratory distress Cardiovascular: normal peripheral pulses, regular rate, rhythm Gastrointestinal: soft; No guarding, No rebound Extremities: normal range of motion Neurologic/Psychiatric: alert, normal mood/affect, oriented x 3 Skin: normal color, warm/dry Progress/Results/Core Measures Results/Orders My Orders Orders - MIRIAMJENALOS L DO Promethazine Injection (Phenergan Injec (06/29/22 10:53) Lactated Ringers (Lr 1000 Ml Iv Solution (06/29/22 10:53) Vital Signs/I&O 06/29/22 10:39 Temp 36.5 Pulse 80 Resp 19 B/P (MAP) 136/74 (94) O2 Delivery Room Air Progress Progress Note : Progress Note Patient had a positive bedside test that she got very anxious and left AMA and states she does know to be here and I just cannot deal with that. After getting to the lobby, then she decided she would like to come back in. This time she is requesting that we will give her something for her nausea and some IV fluids and does not want any further testing. Following IV fluids and Phenergan. Patient's vomiting ceased. I will prescribe her doxylamine. Recommend she follow-up with her primary care provider to arrange for her care. She is stable and discharged Departure Impression Primary Impression: Cyclical vomiting with nausea Additional Impression: state, incidental Disposition: 01 HOME, SELF-CARE Condition: Stable Departure-Patient Inst. Referrals: ELDA BAUMAN MD (PCP/Family) Primary Care Physician Patient Instructions: Taking in Enough Fluids While You Are , Care, Nausea and Vomiting of Add. Discharge Instructions: please start a vitamin. Please follow up with your pcp in about 1 week for recheck and establish care. sooner if symptoms continue. Scripts Doxylamine/Pyridoxine HCl ([place]azo 10-10 mg Tablet) 10 Mg-10 Mg Tablet. 1 EACH PO Q6H PRN for NAUSEA/VOMITING, #30 TAB Prov: LOS PINEDA DO 06/29/22 LOS PINEDA DO Jun 29, 2022 10:45
[2022-06-29] MEDS ORDERED: PROMETHAZINE INJ 25 MG/ML (PHENERGAN) AMP IVP STA (10:53)
[2022-06-29] MEDS ORDERED: LACTATED RINGERS 1,000 ML IV STA (10:53)
[2022-06-29] MEDS ORDERED: DOXY1TAB3 PO (10:56)
[2022-06-29 11:40] VITALS: BP 131/65
== END 2022-06-29 11:38 | disposition home or self-care (01) ==
LOC: EDUNIT# 10:38 → ER FS 10:39
DX: O21.9 Vomiting of pregnancy, unspecified (principal); Z3A.00 Weeks of gestation of pregnancy not specified
CPT/HCPCS: 99285

== ENCOUNTER 2022-07-02 09:17 | Emergency (ER) | payer MEDICAID ==
[~2022-07-02] VITALS: Ht 154.9 cm; Wt 72.6 kg
[~2022-07-02 09:17] MED LIST changes: +DOXY1TAB3 PO
--- NOTE | 2022-07-02 09:29 | ED General ---
General Stated Complaint: N/V Source of Information: Patient Exam Limitations: No Limitations History of Present Illness Date Seen by Provider: Jul 02, 2022 Time Seen by Provider: 09:23 Initial Comments 22-year-old female presents to the emergency department today for nausea and vomiting. She was here on the and found out she was . She does have a history of chronic nausea vomiting with cyclic vomiting syndrome. She states no one is "been able to figure it out." This has been an issue for about 3 years and this is similar to her previous presentations. Presently she states she has been vomiting for 3 days and is concerned she may have dehydration. She states she has had a miscarriage with her vomiting syndrome in the past and is concerned. Last menstrual cycle was about 2 months ago. Fevers chills. She has diffuse abdominal cramping without any focal abdominal tenderness. No vaginal symptoms. No urinary symptoms. She has been using oral Zofran at home. Allergies and Home Medications Allergies Coded Allergies: No Known Drug Allergies (Unverified , 03/16/19) Patient Home Medication List Home Medication List Reviewed: Yes Amoxicillin (Amoxicillin) 500 Mg Capsule, (Reported) Entered as Reported by: DENILSON STEVENS on 12/05/201955 Doxylamine/Pyridoxine HCl (Jimenez Dr 10-10 mg Tablet) 10 Mg-10 Mg Tablet., 1 EACH PO Q6H PRN for NAUSEA/VOMITING Prescribed by: LOS PINEDA on 06/29/22 105 Ibuprofen (Ibuprofen) 800 Mg Tablet, 800 MG PO Q8H PRN for PAIN Prescribed by: DIANE CHARLES on 11/26/20 0952 Metronidazole (Metronidazole) 500 Mg Tablet, (Reported) Entered as Reported by: DENILSON STEVENS on 12/05/201955 Ondansetron (Ondansetron Odt) 4 Mg Tab.rapdis, 4 MG PO Q6H PRN for NAUSEA/VOMITING Prescribed by: DIANE CHARLES on 03/16/192117 Ondansetron (Ondansetron Odt) 4 Mg Tab.rapdis, 4 MG SL Q4H PRN for NAUSEA/VOMITING Prescribed by: PAULINE TORREZ on 07/01/21 0930 Ondansetron (Ondansetron Odt) 4 Mg Tab.rapdis, 4 MG PO Q6H PRN for NAUSEA/VOMITING-1ST LINE Prescribed by: WILEY LOZOYA on 09/29/21 0634 Ondansetron (Ondansetron Odt) 4 Mg Tab.rapdis, 4 MG PO Q6H PRN for NAUSEA/VOMITING Prescribed by: DIANE CHARLES on 04/06/22 1003 Ondansetron HCl (Ondansetron HCl) 4 Mg Tablet, (Reported) Entered as Reported by: DENILSON STEVENS on 12/05/201955 Pantoprazole Sodium (Pantoprazole Sodium) 40 Mg Tablet.dr, (Reported) Entered as Reported by: DENILSON STEVENS on 12/05/201955 Promethazine HCl (Promethazine Tablet) 25 Mg Tablet, 25 MG PO Q6H PRN for NAUSEA/VOMITING-2ND LINE Prescribed by: WILEY LOZOYA on 09/29/21 0642 Promethazine HCl (Promethazine Tablet) 25 Mg Tablet, 25 MG PO Q6H PRN for NAUSEA/VOMITING Prescribed by: WILEY LOZOYA on 04/01/22 1049 Promethazine HCl (Promethazine Suppository) 25 Mg Supp.rect, 25 MG RC Q6H PRN for NAUSEA/VOMITING-2ND LINE Prescribed by: WILEY LOZOYA on 04/01/22 1049 Review of Systems Review of Systems Constitutional: no symptoms reported EENTM: no symptoms reported Respiratory: no symptoms reported Cardiovascular: no symptoms reported Gastrointestinal: nausea, vomiting Genitourinary: no symptoms reported : Yes Musculoskeletal: no symptoms reported Skin: no symptoms reported Psychiatric/Neurological: No Symptoms Reported Hematologic/Lymphatic: No Symptoms Reported Immunological/Allergic: no symptoms reported Past Swtkctf-Nhobds-Zmneeu Hx Patient Social History Tobacco Use?: No Use of E-Cig and/or Vaping dev: No Substance use?: Yes Substance type: Marijuana Alcohol Use?: No Immunizations Up To Date Tetanus Booster (TDap): Unknown PED Vaccines UTD: Yes First/Initial COVID19 Vaccinat: 01/2021 Second COVID19 Vaccination Eligio: 01/2021 Third COVID19 Vaccination Date: 01/2021 Seasonal Allergies Seasonal Allergies: No Past Medical History Surgery/Hospitalization HX: HIATAL HERNIA,Cyclic Vomiting Surgeries: Yes (D&C) Respiratory: No Cardiac: No Neurological: No Genitourinary: No Gastrointestinal: Yes Gastroesophageal Reflux, Hiatal Hernia Musculoskeletal: No Endocrine: No HEENT: No Cancer: No Psychosocial: No Integumentary: No Blood Disorders: No Family Medical History Reviewed Nursing Family Hx No Pertinent Family Hx Physical Exam Vital Signs Capillary Refill : Height, Weight, BMI Height: 5'1.00" Weight: 140lbs. oz. [id number]; 30.00 BMI Method:Stated General Appearance: No Apparent Distress, WD/WN HEENT: Normal ENT Inspection, Pharynx Normal Neck: Full Range of Motion, Non Tender, Supple Respiratory: Chest Non Tender, Lungs Clear, Normal Breath Sounds, No Accessory Muscle Use, No Respiratory Distress Cardiovascular: Regular Rate, Rhythm, No Edema, No Gallop, No JVD, No Murmur, Normal Peripheral Pulses Gastrointestinal: Normal Bowel Sounds, No Organomegaly, No Pulsatile Mass, Non Tender, Soft Back: Normal Inspection, No Vertebral Tenderness Extremity: Normal Capillary Refill, Normal Inspection, Non Tender Neurologic/Psychiatric: Alert, Oriented x3, No Motor/Sensory Deficits Skin: Normal Color, Warm/Dry Lymphatic: No Adenopathy Progress/Results/Core Measures Suspected Sepsis SIRS Temperature: Pulse: Respiratory Rate: Blood Pressure / Mean: Results/Orders Vital Signs/I&O Capillary Refill : Departure Communication (Admissions) Patient is hemodynamically stable, nontoxic. No vomiting here. Given IV fluids at her request as well as IV Zofran. She will be discharged home. 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 Advised her to get this and use this primarily for nausea and Zofran for any additional nausea. She states understanding. She is discharged in stable condition with supportive care. Advise she continue to refrain from marijuana use. Impression Primary Impression: Nausea & vomiting Qualified Codes: R11.2 - Nausea with vomiting, unspecified Additional Impression: Qualified Codes: Z34.90 - Encounter for supervision of normal , unspecified, unspecified trimester Disposition: 01 HOME, SELF-CARE Condition: Stable Departure-Patient Inst. Referrals: ELDA BAUMAN MD (PCP) Primary Care Physician Patient Instructions: Nausea and Vomiting, Adult Add. 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 This is the preferred nausea medicine in . Continue to use home Zofran. Increase your fluids at home and rest. Make sure you take your vitamins and obtain care. Return to the emergency department for any severe concerns. AAYUSH PARKS DO Jul 02, 2022 09:29
[2022-07-02] MEDS ORDERED: ONDANSETRON 4 MG/2 ML (SDV) Z0FRAN IVP ONE (09:30)
[2022-07-02] MEDS ORDERED: NS IV 1000 ML 1,000 ML IV SCH (09:30)
[2022-07-02 10:12] VITALS: BP 120/73
== END 2022-07-02 10:12 | disposition home or self-care (01) ==
LOC: EDUNIT# 09:17 → ER FS 09:18
DX: O21.9 Vomiting of pregnancy, unspecified (principal); Z3A.00 Weeks of gestation of pregnancy not specified
CPT/HCPCS: 99283

== ENCOUNTER 2022-07-08 13:27 | Emergency (ER) | payer MEDICAID ==
[~2022-07-08] VITALS: Ht 154.9 cm; Wt 69.8 kg
[2022-07-08] MEDS ORDERED: NS IV 1000 ML 1,000 ML IV STA ×2 (13:41→14:31)
[2022-07-08] MEDS ORDERED: ONDANSETRON 4 MG/2 ML (SDV) Z0FRAN IVP STA (13:41)
[2022-07-08 13:56] LABS: BASOPHILS % (AUTO) 0 % (0-10); EOSINOPHILS % (AUTO) 0 % (0-10); HEMATOCRIT 41 % (35-52); HEMOGLOBIN 14.6 g/dL (11.5-16.0); LYMPHOCYTES # (AUTO) 0.7 10^3/uL (1.0-4.0); LYMPHOCYTES % (AUTO) 4 % (12-44); MEAN CORPUSCULAR HEMOGLOBIN 29 pg (25-34); MEAN CORPUSCULAR HGB CONC 35 g/dL (32-36); MEAN CORPUSCULAR VOLUME 83 fL (80-99); MEAN PLATELET VOLUME 9.8 fL (9.0-12.2); MONOCYTES # (AUTO) 0.3 10^3/uL (0.0-1.0); MONOCYTES % (AUTO) 2 % (0-12); NEUTROPHILS # (AUTO) 13.8 10^3/uL (1.8-7.8); NEUTROPHILS % (AUTO) 93 % (42-75); PLATELET COUNT 317 10^3/uL (130-400); WHITE BLOOD COUNT 14.9 10^3/uL (4.3-11.0)
[2022-07-08 14:16] LABS: ALBUMIN 4.4 GM/DL (3.2-4.5); BILIRUBIN,TOTAL 0.4 MG/DL (0.1-1.0); CALCIUM 9.7 MG/DL (8.5-10.1); CREATININE SERUM 0.48 MG/DL (0.60-1.30); POTASSIUM 3.9 MMOL/L (3.6-5.0); TOTAL PROTEIN 7.8 GM/DL (6.4-8.2)
--- NOTE | 2022-07-08 14:23 | ED General ---
General Chief Complaint: OB < 20 WEEKS Stated Complaint: VOMITING Nursing Triage Note: Patient presents to the ED with c/o nausea, vomiting, runny stools, and craming during . Reports positive test July 02 with LMP of May 26. States she has been vomiting since yesterday morning. Source of Information: Patient, Old Records History of Present Illness Date Seen by Provider: Jul 08, 2022 Time Seen by Provider: 14:23 Initial Comments 22-year-old female presenting with recurrent nausea and vomiting. She states that she has been having some cramping to the right side of her abdomen and having some looser stools. She has been trying to take vitamin B6 to help with her nausea and vomiting. She states the Zofran has not been helping very much. She had the most success with taking promethazine in the past. She states that she has not had a lot since she was found to be . Her first OB visit is with a doctor at and is not until July 21. Her last menstrual period was May 26. She denies having fever, chills, cough, nasal congestion, pain with urination, vaginal bleeding. Timing/Duration: 1 Day Severity: Moderate Modifying Factors: worse with Eating Associated Systoms: No Chest Pain, No Cough, No Diaphoresis, No Fever/Chills, No Headaches, No Loss of Appetite; Malaise, Nausea/Vomiting; No Rash, No Seizure, No Shortness of Air, No Syncope; Weakness Allergies and Home Medications Allergies Coded Allergies: No Known Drug Allergies (Unverified , 03/16/19) Patient Home Medication List Home Medication List Reviewed: Yes Amoxicillin (Amoxicillin) 500 Mg Capsule, (Reported) Entered as Reported by: DENILSON STEVENS on 12/05/201955 Doxylamine/Pyridoxine HCl (Jimenez Suazo 10-10 mg Tablet) 10 Mg-10 Mg Tablet.dr, 1 EACH PO Q6H PRN for NAUSEA/VOMITING Prescribed by: LOS PINEDA on 06/29/22 105 Ibuprofen (Ibuprofen) 800 Mg Tablet, 800 MG PO Q8H PRN for PAIN Prescribed by: DIANE CHARLES on 11/26/20 0952 Metronidazole (Metronidazole) 500 Mg Tablet, (Reported) Entered as Reported by: DENILSON STEVENS on 12/05/201955 Ondansetron (Ondansetron Odt) 4 Mg Tab.rapdis, 4 MG PO Q6H PRN for NAUSEA/VOMITING Prescribed by: DIANE CARREONRT on 03/16/19 2118 Ondansetron (Ondansetron Odt) 4 Mg Tab.rapdis, 4 MG SL Q4H PRN for NAUSEA /VOMITING Prescribed by: PAULINE TORREZ on 07/01/21 0930 Ondansetron (Ondansetron Odt) 4 Mg Tab.rapdis, 4 MG PO Q6H PRN for NAUSEA/VOMITING-1ST LINE Prescribed by: WILEY LOZOYA on 09/29/21 0634 Ondansetron (Ondansetron Odt) 4 Mg Tab.rapdis, 4 MG PO Q6H PRN for NAUSEA/VOMITING Prescribed by: DIANE CHARLES on 04/06/22 1003 Ondansetron HCl (Ondansetron HCl) 4 Mg Tablet, (Reported) Entered as Reported by: DENILSON STEVENS on 12/05/201955 Pantoprazole Sodium (Pantoprazole Sodium) 40 Mg Tablet., (Reported) Entered as Reported by: DENILSON STEVENS on 12/05/201955 Promethazine HCl (Promethazine Tablet) 25 Mg Tablet, 25 MG PO Q6H PRN for NAUSEA/VOMITING-2ND LINE Prescribed by: WILEY LOZOYA on 09/29/21 0642 Promethazine HCl (Promethazine Tablet) 25 Mg Tablet, 25 MG PO Q6H PRN for NAUSEA/VOMITING Prescribed by: DIANE CARREONRT on 07/08/22 1541 Promethazine HCl (Promethazine Suppository) 25 Mg Supp.rect, 25 MG RC Q6H PRN for NAUSEA/VOMITING-2ND LINE Prescribed by: DIANE CHARLES on 07/08/22 1541 Review of Systems Review of Systems Constitutional: No chills, No fever EENTM: no symptoms reported Respiratory: no symptoms reported Cardiovascular: no symptoms reported Gastrointestinal: see HPI Genitourinary: see HPI, decreased output Musculoskeletal: no symptoms reported Skin: No rash Psychiatric/Neurological: Denies Headache Past Cdsnuwm-Mcodsb-Oydzmi Hx Patient Social History Tobacco Use?: No Use of E-Cig and/or Vaping dev: No Substance use?: No Alcohol Use?: No Pt feels they are or have been: No Immunizations Up To Date Tetanus Booster (TDap): Unknown PED Vaccines UTD: Yes First/Initial COVID19 Vaccinat: 01/2021 Second COVID19 Vaccination Eligio: 01/2021 Third COVID19 Vaccination Date: 01/2021 Seasonal Allergies Seasonal Allergies: No Past Medical History Surgery/Hospitalization HX: HIATAL HERNIA,Cyclic Vomiting Surgeries: Yes (D&C) Respiratory: No Cardiac: No Neurological: No Last Menstrual Period: May 26, 2022 Genitourinary: No Gastrointestinal: Yes Gastroesophageal Reflux, Hiatal Hernia Musculoskeletal: No Endocrine: No HEENT: No Cancer: No Psychosocial: No Integumentary: No Blood Disorders: No Family Medical History No Pertinent Family Hx Physical Exam Vital Signs Vital Signs - First Documented 07/08/22 13:35 Temp 36.7 Pulse 95 Resp 16 B/P (MAP) 113/77 (89) Pulse Ox 99 O2 Delivery Room Air Capillary Refill : Less Than 3 Seconds Height, Weight, BMI Height: 5'1.00" Weight: 140lbs. oz. 63.670963rk; 29.00 BMI Method:Stated General Appearance: WD/WN, Mild Distress HEENT: PERRL/EOMI, Pharynx Normal; No Moist Mucous Membranes (slightly dry mucous membranes) Neck: Full Range of Motion, Normal Inspection, Non Tender, Supple Respiratory: Chest Non Tender, Lungs Clear, Normal Breath Sounds, No Accessory Muscle Use, No Respiratory Distress Cardiovascular: Regular Rate, Rhythm, Normal Peripheral Pulses Gastrointestinal: Normal Bowel Sounds, No Pulsatile Mass, Soft; No Distended, No Guarding, No Rebound; Tenderness (right upper abdomen tender to palpation) Rectal: Deferred Extremity: Normal Capillary Refill, Normal Inspection, No Pedal Edema Neurologic/Psychiatric: Alert, 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, 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 Norm as Tested Skin: Normal Color, Warm/Dry Progress/Results/Core Measures Suspected Sepsis SIRS Temperature: Pulse: 95 Respiratory Rate: 16 Laboratory Tests 07/08/22 13:50: White Blood Count 14.9H Blood Pressure 113 /77 Mean: 89 Laboratory Tests 07/08/22 13:50: Creatinine 0.48L, Platelet Count 317, Total Bilirubin 0.4 Results/Orders Lab Results Laboratory Tests Test 07/08/22 13:50 07/08/22 14:23 Range/Units White Blood Count 14.9 H 4.3-11.0 10^3/uL Red Blood Count 4.96 3.80-5.11 10^6/uL Hemoglobin 14.6 11.5-16.0 g/dL Hematocrit 41 35-52 % Mean Corpuscular Volume 83 80-99 fL Mean Corpuscular Hemoglobin 29 25-34 pg Mean Corpuscular Hemoglobin Concent 35 32-36 g/dL Red Cell Distribution Width 12.1 10.0-14.5 % Platelet Count 317 130-400 10^3/uL Mean Platelet Volume 9.8 9.0-12.2 fL Immature Granulocyte % (Auto) 1 % Neutrophils (%) (Auto) 93 H 42-75 % Lymphocytes (%) (Auto) 4 L 12-44 % Monocytes (%) (Auto) 2 0-12 % Eosinophils (%) (Auto) 0 0-10 % Basophils (%) (Auto) 0 0-10 % Neutrophils # (Auto) 13.8 H 1.8-7.8 10^3/uL Lymphocytes # (Auto) 0.7 L 1.0-4.0 10^3/uL Monocytes # (Auto) 0.3 0.0-1.0 10^3/uL Eosinophils # (Auto) 0.0 0.0-0.3 10^3/uL Basophils # (Auto) 0.0 0.0-0.1 10^3/uL Immature Granulocyte # (Auto) 0.1 0.0-0.1 10^3/uL Neutrophils % (Manual) 92 % Lymphocytes % (Manual) 5 % Monocytes % (Manual) 2 % Eosinophils % (Manual) 0 % Basophils % (Manual) 0 % Band Neutrophils 1 % Sodium Level 136 135-145 MMOL/L Potassium Level 3.9 3.6-5.0 MMOL/L Chloride Level 101 98-107 MMOL/L Carbon Dioxide Level 20 L 21-32 MMOL/L Anion Gap 15 H 5-14 MMOL/L Blood Urea Nitrogen 11 7-18 MG/DL Creatinine 0.48 L 0.60-1.30 MG/DL Estimat Glomerular Filtration Rate 139 BUN/Creatinine Ratio 23 Glucose Level 128 H 70-105 MG/DL Calcium Level 9.7 8.5-10.1 MG/DL Corrected Calcium 9.4 8.5-10.1 MG/DL Total Bilirubin 0.4 0.1-1.0 MG/DL Aspartate Amino Transf (AST/SGOT) 15 5-34 U/L Alanine Aminotransferase (ALT/SGPT) 14 0-55 U/L Alkaline Phosphatase 73 40-136 U/L Total Protein 7.8 6.4-8.2 GM/DL Albumin 4.4 3.2-4.5 GM/DL Lipase 34 8-78 U/L Urine Color YELLOW Urine Clarity SL CLOUDY Urine pH 6.5 5-9 Urine Specific Anza 1.025 H 1.016-1.022 Urine Protein 1+ H NEGATIVE Urine Glucose (UA) NEGATIVE NEGATIVE Urine Ketones 3+ H NEGATIVE Urine Nitrite NEGATIVE NEGATIVE Urine Bilirubin NEGATIVE NEGATIVE Urine Urobilinogen 0.2 < = 1.0 MG/DL Urine Leukocyte Esterase NEGATIVE NEGATIVE Urine RBC (Auto) NEGATIVE NEGATIVE Urine RBC NONE /HPF Urine WBC 0-2 /HPF Urine Squamous Epithelial Cells 5-10 /HPF Urine Crystals NONE /LPF Urine Bacteria MODERATE H /HPF Urine Casts NONE /LPF Urine Mucus MODERATE H /LPF Urine Culture Indicated NO My Orders Orders - DIANE CHARLES MD Comprehensive Metabolic Panel (07/08/22 13:41) Lipase (07/08/22 13:41) Ua Culture If Indicated (07/08/22 13:41) Ed Iv/Invasive Line Start (07/08/22 13:41) Cbc With Automated Diff (07/08/22 13:41) Ns Iv 1000 Ml (Sodium Chloride 0.9%) (07/08/22 13:41) Ondansetron Injection (Zofran Injectio (07/08/22 13:41) Manual Differential (07/08/22 13:50) Promethazine Injection (Phenergan Injec (07/08/22 14:31) Ns Iv 1000 Ml (Sodium Chloride 0.9%) (07/08/22 14:31) Vital Signs/I&O 07/08/22 07/08/22 13:35 15:43 Temp 36.7 36.7 Pulse 95 87 Resp 16 16 B/P (MAP) 113/77 (89) 115/72 Pulse Ox 99 99 O2 Delivery Room Air Room Air Capillary Refill : Less Than 3 Seconds Blood Pressure Mean: 89 Progress Note #1: Progress Note check labs and urine to look for acute electrolyte abnormality, UTI, liver failure, renal failure, anemia. Give NS 1 L IVF bolus for hydration. Zofran 4 mg IV for nausea and vomiting. Progress Note #2: Time: 14:21 Progress Note She felt the nausea medicine was not helping so will try Phenergan 25 mg IM and repeat NS 1 L IVF bolus since she still felt she did not have to urinate after the initial Liter of NS. I advised her I would like her to urinate before she goes so we can see her hydration level and check for infection. Progress Note #3: Time: 15:09 Progress Note UA does not show infection. She does have ketones present to go with dehydration and not eating or drinking well. Will check on her again after the 2nd L of NS has infused for hydration. Try po challenge here in ED. Progress Note #4: Progress Note tolerating ice chips and has not had any emesis while in ED. Discharge to home with prescriptions for Phenergan pills and suppositories to have available to try and help with nausea and vomiting. Check back with PCP if needed and keep appt with OB at on Jul 21. Departure Impression Primary Impression: Cyclical vomiting with nausea Additional Impression: state, incidental Disposition: HOME, SELF-CARE Condition: Stable Departure-Patient Inst. Decision time for Depature: 15:40 Referrals: ELDA BAUMAN MD (PCP) Primary Care Physician Patient Instructions: Nausea and Vomiting, Adult ED, Nausea and Vomiting of Add. Discharge Instructions: Continue to try sipping on fluids and stay better hydrated Try the Promethazine for nausea and vomiting. Check with pcp and keep follow up with color sprayer in July for continued concerns All discharge instructions reviewed with patient and/or family. Voiced unde rstanding. Scripts Promethazine HCl (Promethazine Suppository) 25 Mg Supp.rect 25 MG RC Q6H PRN for NAUSEA/VOMITING-2ND LINE for 5 Days, #20 SUPP.RECT Do not mix with the oral promethazine. Take this if you cannot keep medicine down. Prov: DIANE CHARLES MD 07/08/22 Promethazine HCl (Promethazine Tablet) 25 Mg Tablet 25 MG PO Q6H PRN for NAUSEA/VOMITING for 5 Days, #20 TAB 0 Refills Prov: DIANE CHARLES MD 07/08/22 DIANE CHARLES MD Jul 08, 2022 14:23
[2022-07-08 14:26] LABS: BAND NEUTROPHILS 1 %; LYMPHOCYTES % (MANUAL) 5 %; NEUTROPHILS % (MANUAL) 92 %
[2022-07-08 14:27] LABS: BASOPHILS % (MANUAL) 0 %; EOSINOPHILS % (MANUAL) 0 %; MONOCYTES % (MANUAL) 2 %
[2022-07-08] MEDS ORDERED: PROMETHAZINE INJ 25 MG/ML (PHENERGAN) AMP IM STA (14:31)
[2022-07-08 14:49] LABS: BILIRUBIN,URINE NEGATIVE (NEGATIVE); CLARITY,URINE SL CLOUDY; COLOR,URINE YELLOW; GLUCOSE, URINE (UA) NEGATIVE (NEGATIVE); KETONES,URINE 3+ (NEGATIVE); LEUKOCYTE ESTERASE ,URINE NEGATIVE (NEGATIVE); NITRITE,URINE NEGATIVE (NEGATIVE); PH,URINE 6.5 (5-9); PROTEIN,URINE 1+ (NEGATIVE)
[2022-07-08 14:55] LABS: BACTERIA,URINE MODERATE /HPF; WBC,URINE 0-2 /HPF
[2022-07-08] MEDS ORDERED: PROM25SU44 RC (15:41)
[2022-07-08] MEDS ORDERED: PROM25TA14 PO (15:41)
[2022-07-08 15:43] VITALS: BP 115/72
== END 2022-07-08 15:43 | disposition home or self-care (01) ==
LOC: EDUNIT# 13:27 → ER FS 13:28
DX: O21.9 Vomiting of pregnancy, unspecified (principal); O99.281 Endocrine, nutritional and metabolic diseases complicating pregnancy, first trimester; E86.0 Dehydration; O99.891 Other specified diseases and conditions complicating pregnancy; R82.4 Acetonuria; Z3A.00 Weeks of gestation of pregnancy not specified
CPT/HCPCS: 36415; 80053; 81000; 83690; 85007; 85027; 99284

== ENCOUNTER 2022-07-22 16:17 | Emergency (ER) | payer MEDICAID ==
[~2022-07-22] VITALS: Ht 154 cm; Wt 68.9 kg
[2022-07-22 16:26] VITALS: BP 121/65
[2022-07-22] MEDS ORDERED: LACTATED RINGERS 1,000 ML IV SCH (16:45)
[2022-07-22] MEDS ORDERED: PROCHLORPERAZINE 10 MG/2ML INJ (COMPAZINE) IV ONE (16:45)
[2022-07-22 17:20] LABS: CREATININE SERUM 0.52 MG/DL (0.60-1.30); POTASSIUM 3.4 MMOL/L (3.6-5.0)
[2022-07-22 17:21] LABS: CALCIUM 9.5 MG/DL (8.5-10.1)
--- NOTE | 2022-07-22 17:39 | ED Abdominal Pain ---
General Chief Complaint: Abdominal/GI Problems Stated Complaint: VOMITING/NAUSEA 8 WKS PREG Nursing Triage Note: Patient has presented to ER with cc of being 8 weeks - for the last 3 days she cannot keep anything down - she has been taking vit b 6, and zofran for her vomiting but it is just not helping. She did see her nitrate operator yesterday and she was advised to keep taking her nausea medication. She did states that she has had diarrhe and a headache for the last 3 days as well. Source of Information: Caregiver Exam Limitations: No Limitations History of Present Illness Date Seen by Provider: Jul 22, 2022 Time Seen by Provider: 17:00 Initial Comments Patient is a 22-year-old, G4, P0, estimated 8 weeks gestation female who presents with daily nausea and vomiting for the past several days with dizziness and right headedness upon standing. Patient has been taking B6, yet Compazine and Zofran with limited improvement. She reports musculoskeletal pain secondary to vomiting. No other acute symptoms or complaints. Timing/Duration: Other Severity/Quality: Other Location: Other Radiation: Other Activities at Onset: Other Modifying Factors: Improves With Other Associated Symptoms: Other Allergies and Home Medications Allergies Coded Allergies: No Known Drug Allergies (Unverified , 03/16/19) Patient Home Medication List Home Medication List Reviewed: Yes Amoxicillin (Amoxicillin) 500 Mg Capsule, (Reported) Entered as Reported by: DENILSON STEVENS on 12/05/201955 Doxylamine/Pyridoxine HCl (Jimenez Suazo 10-10 mg Tablet) 10 Mg-10 Mg Tablet.dr, 1 EACH PO Q6H PRN for NAUSEA/VOMITING Prescribed by: LOS PINEDA on 06/29/22 1056 Ibuprofen (Ibuprofen) 800 Mg Tablet, 800 MG PO Q8H PRN for PAIN Prescribed by: DIANE CHARLES on 11/26/20 0952 Metronidazole (Metronidazole) 500 Mg Tablet, (Reported) Entered as Reported by: DENILSON STEVENS on 12/05/201955 Ondansetron (Ondansetron Odt) 4 Mg Tab.rapdis, 4 MG PO Q6H PRN for NAUSEA/VOMITING Prescribed by: DIANE TEJADAYART on 03/16/192117 Ondansetron (Ondansetron Odt) 4 Mg Tab.rapdis, 4 MG SL Q4H PRN for NAUSEA/VOMITING Prescribed by: PAULINE TORREZ on 07/01/21 0930 Ondansetron (Ondansetron Odt) 4 Mg Tab.rapdis, 4 MG PO Q6H PRN for NAUSEA/VOMITING-1ST LINE Prescribed by: WILEY LOZOYA on 09/29/21 0634 Ondansetron (Ondansetron Odt) 4 Mg Tab.rapdis, 4 MG PO Q6H PRN for NAUSEA/VOMITING Prescribed by: DIANE CHARLES on 04/06/22 1003 Ondansetron HCl (Ondansetron HCl) 4 Mg Tablet, (Reported) Entered as Reported by: DENILSON STEVENS on 12/05/201955 Pantoprazole Sodium (Pantoprazole Sodium) 40 Mg Tablet., (Reported) Entered as Reported by: DENILSON STEVENS on 12/05/201955 Promethazine HCl (Promethazine Tablet) 25 Mg Tablet, 25 MG PO Q6H PRN for NAUSEA/VOMITING-2ND LINE Prescribed by: WILEY LOZOYA on 09/29/21 0642 Promethazine HCl (Promethazine Tablet) 25 Mg Tablet, 25 MG PO Q6H PRN for AILEEN SEA/VOMITING Prescribed by: DIANE CHARLES on 07/08/22 1541 Promethazine HCl (Promethazine Suppository) 25 Mg Supp.rect, 25 MG RC Q6H PRN for NAUSEA/VOMITING-2ND LINE Prescribed by: DIANE CHARLES on 07/08/22 1541 Review of Systems Review of Systems Constitutional: see HPI EENTM: See HPI Respiratory: See HPI Cardiovascular: See HPI Gastrointestinal: See HPI Genitourinary: See HPI Musculoskeletal: see HPI Skin: see HPI Psychiatric/Neurological: See HPI Endocrine: See HPI Hematologic/Lymphatic: See HPI All Other Systems Reviewed Negative Unless Noted: No Past Mcvfmyl-Xfspzn-Mcqpsl Hx Patient Social History Tobacco Use?: No Use of E-Cig and/or Vaping dev: No Substance use?: No Alcohol Use?: No Pt feels they are or have been: Unable to obtain Immunizations Up To Date Tetanus Booster (TDap): Unknown PED Vaccines UTD: Yes First/Initial COVID19 Vaccinat: 01/2021 Second COVID19 Vaccination Eligio: 01/2021 Third COVID19 Vaccination Date: 01/2021 Seasonal Allergies Seasonal Allergies: No Past Medical History Surgery/Hospitalization HX: HIATAL HERNIA,Cyclic Vomiting Surgeries: Yes (D&C) Respiratory: No Cardiac: No Neurological: No Genitourinary: No Gastrointestinal: Yes Gastroesophageal Reflux, Hiatal Hernia Musculoskeletal: No Endocrine: No HEENT: No Cancer: No Psychosocial: No Integumentary: No Blood Disorders: No Family Medical History No Pertinent Family Hx Physical Exam Vital Signs Vital Signs - First Documented 07/22/22 16:26 Temp 36.6 Pulse 81 Resp 18 B/P (MAP) 121/65 (83) Pulse Ox 100 O2 Delivery Room Air Capillary Refill : Height/Weight/BMI Height: 5'1.00" Weight: 140lbs. oz. [id number]; 29.00 BMI Method:Stated General Appearance: WD/WN, no apparent distress HEENT: PERRL/EOMI, normal ENT inspection Respiratory: lungs clear Cardiovascular: normal peripheral pulses, regular rate, rhythm, no edema Gastrointestinal: soft Back: normal inspection, no CVA tenderness Neurologic/Psychiatric: alert, normal mood/affect, oriented x 3 Focused Exam Sepsis Stage: Ruled Out Progress/Results/Core Measures Results/Orders Lab Results Laboratory Tests Test 07/22/22 16:47 Range/Units Sodium Level 137 135-145 MMOL/L Potassium Level 3.4 L 3.6-5.0 MMOL/L Chloride Level 99 98-107 MMOL/L Carbon Dioxide Level 20 L 21-32 MMOL/L Anion Gap 18 H 5-14 MMOL/L Blood Urea Nitrogen 10 7-18 MG/DL Creatinine 0.52 L 0.60-1.30 MG/DL Estimat Glomerular Filtration Rate 136 BUN/Creatinine Ratio 19 Glucose Level 89 70-105 MG/DL Calcium Level 9.5 8.5-10.1 MG/DL My Orders Orders - SHANELL LAMB DO Basic Metabolic Panel (07/22/22 16:39) Ua Culture If Indicated (07/22/22 16:39) Lactated Ringers (Lr 1000 Ml Iv Solution (07/22/22 16:45) Prochlorperazine Injection (Compazine In (07/22/22 16:45) Medications Given in ED Current Medications Medications Dose Ordered Sig/Natali Route Start Time Stop Time Status Last Admin Dose Admin Prochlorperazine Edisylate 10 mg ONCE ONCE IV 07/22/22 16:45 07/22/22 16:46 DC 07/22/22 16:55 10 MG Vital Signs/I&O 07/22/22 16:26 Temp 36.6 Pulse 81 Resp 18 B/P (MAP) 121/65 (83) Pulse Ox 100 O2 Delivery Room Air Blood Pressure Mean: 83 Departure Communication (Admissions) Patient nausea vomiting in early . IV fluids antibiotics given with clinical improvement. Recommendations are continued supportive care with watchful waiting and OB follow-up. Return precautions reviewed. Patient verbalizes understanding agreement with discharge instructions prior to departure. Impression Primary Impression: Nausea and vomiting during Disposition: HOME, SELF-CARE Condition: Stable Departure-Patient Inst. Decision time for Depature: 17:40 Referrals: ELDA BAUMAN MD (PCP/Family) Primary Care Physician Patient Instructions: Nausea and Vomiting of Add. Discharge Instructions: You were evaluated in the emergency department for nausea and vomiting during early . Please continue home nausea medications drink clear liquids frequently and gradually progressed with a bland diet as tolerated. Take Zofran as needed for additional relief. Follow-up with your LICENSED APPRAISER for further treatment recommendations. All discharge instructions reviewed with patient and/or family. Voiced understanding. Scripts Ondansetron (Ondansetron Odt) 4 Mg Tab.rapdis 4 MG SL Q4H PRN for NAUSEA/VOMITING, #10 TAB Prov: SHANELL LAMB DO 07/22/22 SHANELL LAMB DO Jul 22, 2022 17:39
[2022-07-22] MEDS ORDERED: ONDA4TAB11 SL (17:42)
== END 2022-07-22 17:43 | disposition home or self-care (01) ==
LOC: EDUNIT# 16:17 → ER FS 16:19
DX: O21.9 Vomiting of pregnancy, unspecified (principal); Z3A.08 8 weeks gestation of pregnancy
CPT/HCPCS: 36415; 80048; 99281

== ENCOUNTER 2022-09-07 09:19 | Emergency (ER) | payer MEDICAID ==
[~2022-09-07] VITALS: Ht 154 cm; Wt 68.0 kg
[2022-09-07 09:26] VITALS: BP 135/66
[2022-09-07] MEDS ORDERED: PROMETHAZINE INJ 25 MG/ML (PHENERGAN) AMP IVP STA (09:28)
[2022-09-07] MEDS ORDERED: diphenhydrAMINE 50 MG/ML INJ (BENADRYL) IVP STA (09:28)
[2022-09-07] MEDS ORDERED: NS IV 1000 ML 1,000 ML IV STA ×2 (09:28→10:11)
[2022-09-07 09:33] LABS: BASOPHILS % (AUTO) 0 % (0-10); EOSINOPHILS % (AUTO) 0 % (0-10); HEMATOCRIT 38 % (35-52); HEMOGLOBIN 13.2 g/dL (11.5-16.0); LYMPHOCYTES # (AUTO) 1.1 10^3/uL (1.0-4.0); LYMPHOCYTES % (AUTO) 9 % (12-44); MEAN CORPUSCULAR HEMOGLOBIN 30 pg (25-34); MEAN CORPUSCULAR HGB CONC 35 g/dL (32-36); MEAN CORPUSCULAR VOLUME 85 fL (80-99); MEAN PLATELET VOLUME 9.6 fL (9.0-12.2); MONOCYTES # (AUTO) 0.6 10^3/uL (0.0-1.0); MONOCYTES % (AUTO) 5 % (0-12); NEUTROPHILS # (AUTO) 10.6 10^3/uL (1.8-7.8); NEUTROPHILS % (AUTO) 86 % (42-75); PLATELET COUNT 287 10^3/uL (130-400); WHITE BLOOD COUNT 12.4 10^3/uL (4.3-11.0)
--- NOTE | 2022-09-07 09:40 | ED General ---
General Chief Complaint: Abdominal/GI Problems Stated Complaint: N/V Nursing Triage Note: Patient has presented to ER with cc of nausea, vomiting, diarrhea, abd pain, and body aches for the last 3 days. She reports being 15 weeks . Source of Information: Patient History of Present Illness Date Seen by Provider: Sep 07, 2022 Time Seen by Provider: 09:22 Initial Comments 22-year-old female that is approximately 15 weeks . She has had problems with nausea and vomiting throughout her in addition to cyclic vomiting syndrome when she is not . She has been seen multiple times through the emergency department. She states that she has had nausea, vomiting, diarrhea since Thursday and has not been able to keep anything down. She complains of generalized body aches and pain. She denies any vaginal bleeding o r discharge. She has been trying medicine at home without improvement. She states Zofran never helps in the past. She has previously gotten Phenergan and IV fluids to help with her symptoms in the emergency department. She states she last saw her OB doctor on August 18. Timing/Duration: 2-3 Days Severity: Severe Modifying Factors: worse with Eating Associated Systoms: No Chest Pain, No Cough, No Diaphoresis, No Fever/Chills, No Headaches, No Loss of Appetite; Malaise, Nausea/Vomiting; No Rash, No Seizure, No Shortness of Air, No Syncope Allergies and Home Medications Allergies Coded Allergies: No Known Drug Allergies (Unverified , 03/16/19) Patient Home Medication List Home Medication List Reviewed: Yes Amoxicillin (Amoxicillin) 500 Mg Capsule, (Reported) Entered as Reported by: DENILSON STEVENS on 12/05/201955 Doxylamine/Pyridoxine HCl (Jimenez Suazo 10-10 mg Tablet) 10 Mg-10 Mg Tablet.dr, 1 EACH PO Q6H PRN for NAUSEA/VOMITING Prescribed by: LOS PINEDA on 06/29/22 1056 Ibuprofen (Ibuprofen) 800 Mg Tablet, 800 MG PO Q8H PRN for PAIN Prescribed by: DIANE CHARLES on 11/26/20 0952 Metronidazole (Metronidazole) 500 Mg Tablet, (Reported) Entered as Reported by: DENILSON STEVENS on 12/05/201955 Ondansetron (Ondansetron Odt) 4 Mg Tab.rapdis, 4 MG PO Q6H PRN for NAUSEA/VOMITING Prescribed by: DIANE CHARLES on 03/16/19 2118 Ondansetron (Ondansetron Odt) 4 Mg Tab.rapdis, 4 MG SL Q4H PRN for NAUSEA/VOMITING Prescribed by: PAULINE TORREZ on 07/01/21 0930 Ondansetron (Ondansetron Odt) 4 Mg Tab.rapdis, 4 MG PO Q6H PRN for NAUSEA/VOMITING-1ST LINE Prescribed by: WILEY LOZOYA on 09/29/21 0634 Ondansetron (Ondansetron Odt) 4 Mg Tab.rapdis, 4 MG PO Q6H PRN for NAUSEA/VOMITING Prescribed by: DIANE CHARLES on 04/06/22 1003 Ondansetron (Ondansetron Odt) 4 Mg Tab.rapdis, 4 MG SL Q4H PRN for NAUSEA/VOMITING Prescribed by: SHANELL LAMB on 07/22/22 174 Ondansetron HCl (Ondansetron HCl) 4 Mg Tablet, (Reported) Entered as Reported by: DENILSON STEVENS on 12/05/201955 Pantoprazole Sodium (Pantoprazole Sodium) 40 Mg Tablet., (Reported) Entered as Reported by: DENILSON STEVENS on 12/05/201955 Promethazine HCl (Promethazine Tablet) 25 Mg Tablet, 25 MG PO Q6H PRN for NAUSEA/VOMITING-2ND LINE Prescribed by: WILEY LOZOYA on 09/29/21 0642 Promethazine HCl (Promethazine Tablet) 25 Mg Tablet, 25 MG PO Q6H PRN for NAUSE A/VOMITING Prescribed by: DIANE CHARLES on 07/08/22 1541 Promethazine HCl (Promethazine Suppository) 25 Mg Supp.rect, 25 MG RC Q6H PRN for NAUSEA/VOMITING-2ND LINE Prescribed by: DIANE CHARLES on 07/08/22 1541 Review of Systems Review of Systems Constitutional: No chills, No fever, No malaise EENTM: no symptoms reported Respiratory: no symptoms reported Cardiovascular: no symptoms reported Gastrointestinal: see HPI Genitourinary: decreased output Musculoskeletal: no symptoms reported Skin: no symptoms reported Psychiatric/Neurological: Anxiety Past Rfwmlre-Ywdjla-Gtaxic Hx Patient Social History Tobacco Use?: No Use of E-Cig and/or Vaping dev: No Substance use?: No Alcohol Use?: No Immunizations Up To Date Tetanus Booster (TDap): Unknown PED Vaccines UTD: Yes First/Initial COVID19 Vaccinat: 01/2021 Second COVID19 Vaccination Eligio: 01/2021 Third COVID19 Vaccination Date: 01/2021 Seasonal Allergies Seasonal Allergies: No Past Medical History Surgery/Hospitalization HX: HIATAL HERNIA,Cyclic Vomiting Surgeries: Yes (D&C) Respiratory: No Cardiac: No Neurological: No Genitourinary: No Gastrointestinal: Yes Gastroesophageal Reflux, Hiatal Hernia Musculoskeletal: No Endocrine: No HEENT: No Cancer: No Psychosocial: No Integumentary: No Blood Disorders: No Family Medical History No Pertinent Family Hx Physical Exam Vital Signs Vital Signs - First Documented 09/07/22 09:26 Temp 36.8 Pulse 70 Resp 16 B/P (MAP) 135/66 (89) Pulse Ox 100 O2 Delivery Room Air Capillary Refill : Height, Weight, BMI Height: 5'1.00" Weight: 140lbs. oz. [id number]; 28.00 BMI Method:Stated General Appearance: Anxious, Mild Distress (appears to not feel well) HEENT: PERRL/EOMI, Moist Mucous Membranes Neck: Full Range of Motion, Normal Inspection, Non Tender, Supple Respiratory: Chest Non Tender, Lungs Clear, Normal Breath Sounds, No Accessory Muscle Use, No Respiratory Distress Cardiovascular: Regular Rate, Rhythm, Normal Peripheral Pulses; No Tachycardia Gastrointestinal: Normal Bowel Sounds, No Pulsatile Mass, Soft; No Distended, No Guarding, No Hepatomegaly, No Rebound; Tenderness (complaint of diffuse tenderness with palpation) Rectal: Deferred Extremity: Normal Capillary Refill, Normal Inspection, No Calf Tenderness, No Pedal Edema Neurologic/Psychiatric: Alert, Oriented x3, Other (anxious) Skin: Normal Color, Warm/Dry Progress/Results/Core Measures Suspected Sepsis SIRS Temperature: Pulse: 70 Respiratory Rate: 16 Laboratory Tests 09/07/22 09:25: White Blood Count 12.4H Blood Pressure 135 /66 Mean: 89 Laboratory Tests 09/07/22 09:25: Creatinine 0.44L, Platelet Count 287, Total Bilirubin 0.5 Results/Orders Lab Results Laboratory Tests Test 09/07/22 09:25 09/07/22 10:15 Range/Units White Blood Count 12.4 H 4.3-11.0 10^3/uL Red Blood Count 4.43 3.80-5.11 10^6/uL Hemoglobin 13.2 11.5-16.0 g/dL Hematocrit 38 35-52 % Mean Corpuscular Volume 85 80-99 fL Mean Corpuscular Hemoglobin 30 25-34 pg Mean Corpuscular Hemoglobin Concent 35 32-36 g/dL Red Cell Distribution Width 13.0 10.0-14.5 % Platelet Count 287 130-400 10^3/uL Mean Platelet Volume 9.6 9.0-12.2 fL Immature Granulocyte % (Auto) 1 % Neutrophils (%) (Auto) 86 H 42-75 % Lymphocytes (%) (Auto) 9 L 12-44 % Monocytes (%) (Auto) 5 0-12 % Eosinophils (%) (Auto) 0 0-10 % Basophils (%) (Auto) 0 0-10 % Neutrophils # (Auto) 10.6 H 1.8-7.8 10^3/uL Lymphocytes # (Auto) 1.1 1.0-4.0 10^3/uL Monocytes # (Auto) 0.6 0.0-1.0 10^3/uL Eosinophils # (Auto) 0.0 0.0-0.3 10^3/uL Basophils # (Auto) 0.0 0.0-0.1 10^3/uL Immature Granulocyte # (Auto) 0.1 0.0-0.1 10^3/uL Sodium Level 135 135-145 MMOL/L Potassium Level 3.7 3.6-5.0 MMOL/L Chloride Level 98 98-107 MMOL/L Carbon Dioxide Level 21 21-32 MMOL/L Anion Gap 16 H 5-14 MMOL/L Blood Urea Nitrogen 8 7-18 MG/DL Creatinine 0.44 L 0.60-1.30 MG/DL Estimat Glomerular Filtration Rate 142 BUN/Creatinine Ratio 18 Glucose Level 110 H 70-105 MG/DL Calcium Level 9.6 8.5-10.1 MG/DL Corrected Calcium 9.6 8.5-10.1 MG/DL Total Bilirubin 0.5 0.1-1.0 MG/DL Aspartate Amino Transf (AST/SGOT) 13 5-34 U/L Alanine Aminotransferase (ALT/SGPT) 14 0-55 U/L Alkaline Phosphatase 49 40-136 U/L Total Protein 7.1 6.4-8.2 GM/DL Albumin 4.0 3.2-4.5 GM/DL Lipase 28 8-78 U/L Urine Color YELLOW Urine Clarity CLEAR Urine pH 7.0 5-9 Urine Specific [place] 1.025 H 1.016-1.022 Urine Protein TRACE H NEGATIVE Urine Glucose (UA) NEGATIVE NEGATIVE Urine Ketones 3+ H NEGATIVE Urine Nitrite NEGATIVE NEGATIVE Urine Bilirubin 1+ H NEGATIVE Urine Urobilinogen 1.0 < = 1.0 MG/DL Urine Leukocyte Esterase NEGATIVE NEGATIVE Urine RBC (Auto) NEGATIVE NEGATIVE Urine RBC NONE /HPF Urine WBC 5-10 H /HPF Urine Squamous Epithelial Cells 10-25 H /HPF Urine Crystals NONE /LPF Urine Bacteria LARGE H /HPF Urine Casts NONE /LPF Urine Mucus LARGE H /LPF Urine Culture Indicated YES My Orders Orders - DIANE CHARLES MD Comprehensive Metabolic Panel (09/07/22 09:28) Lipase (09/07/22 09:28) Ua Culture If Indicated (09/07/22 09:28) Ed Iv/Invasive Line Start (09/07/22 09:28) Cbc With Automated Diff (09/07/22 09:28) Ns Iv 1000 Ml (Sodium Chloride 0.9%) (09/07/22 09:28) Promethazine Injection (Phenergan Injec (09/07/22 09:28) Diphenhydramine Injection (Benadryl Inje (09/07/22 09:28) Heart Tones (09/07/22 09:28) Acetaminophen Tablet (Tylenol Tablet) (09/07/22 10:11) Ns Iv 1000 Ml (Sodium Chloride 0.9%) (09/07/22 10:11) Lactated Ringers (Lr 1000 Ml Iv Solution (09/07/22 11:17) Urine Culture (09/07/22 10:15) Vital Signs/I&O 09/07/22 09:26 Temp 36.8 Pulse 70 Resp 16 B/P (MAP) 135/66 (89) Pulse Ox 100 O2 Delivery Room Air Capillary Refill : Blood Pressure Mean: 89 Progress Note #1: Progress Note Potential diagnosis of hyperemesis gravidarum, cyclic vomiting, marijuana abuse, dehydration, gastroenteritis. Obtain peripheral IV access for administering IV fluids normal saline 1 L bolus for hydration, promethazine 25 mg IV for nausea vomiting, Benadryl 25 mg IV for nausea and vomiting. Send labs for complete blood count, comprehensive metabolic profile, lipase, urinalysis. Obtain heart tones since the patient reports that she is approximately 15 weeks estimated gestational age. She was immediately asking for ice chips and advised patient that she would need to wait until he got some medicine on board to try and help settle her stomach. For her diffuse body pain when she is able to tolerate oral intake well administer acetaminophen. Patient states the Zofran does not help her at all with the nausea and vomiting and the Phenergan has helped in the past. heart tones obtained by RN and were in 150s. Progress Note #2: Progress Note With her labs her complete blood count shows mild elevation of her white blood cells to 12.4 thousand with a left shift. This may be more of a stress reaction. Her comprehensive metabolic profile showed her potassium was okay at 3.7 so it is not too low from her vomiting and diarrhea complaints. Also her BUN of 8 and creatinine is 0.44 goes with her not being severely dehydrated. She still was not able to urinate after the first liter of NS bolus so an additional 1 L NS bolus for hydrtion ordered. Progress Note #3: Progress Note Patient continues to tolerate oral intake and is resting in the room. Despite the second liter of normal saline she still stated that she could not pee. Ordered 1 L bolus of LR and will recheck about urinalysis after this infuses. Progress Note #4: Progress Note Able to obtain a urinalysis after the third liter of IV fluid was administered. She had elevated specific gravity 1.025 on the urinalysis and there were 10-25 epithelial cells with bacteria present. Since she did not have leukocyte esterase or nitrates will defer antibiotics until a culture comes back to see if she just had contamination from skin or if there might truly be a urinary tract infection. Encouraged to keep sipping on fluids and continue with medicines as prescribed by her OB doctor at [facility]. Departure Impression Primary Impression: Hyperemesis gravidarum Disposition: 01 HOME, SELF-CARE Condition: Stable Departure-Patient Inst. Decision time for Depature: 12:46 Referrals: ELDA BAUMAN MD (PCP/Family) Primary Care Physician Patient Instructions: Nausea and Vomiting of , Hyperemesis Gravidarum (DC) Add. Discharge Instructions: Continue to try and sip on fluids and stay hydrated. Continue on your medicines at home to try and help keep your stomach settled. Follow-up with your OB doctor for continued concerns. All discharge instructions reviewed with patient and/or family. Voiced understanding. DIANE CHARLES MD Sep 07, 2022 09:40
[2022-09-07 09:52] LABS: POTASSIUM 3.7 MMOL/L (3.6-5.0)
[2022-09-07 09:53] LABS: BILIRUBIN,TOTAL 0.5 MG/DL (0.1-1.0); CALCIUM 9.6 MG/DL (8.5-10.1); CREATININE SERUM 0.44 MG/DL (0.60-1.30); TOTAL PROTEIN 7.1 GM/DL (6.4-8.2)
[2022-09-07] MEDS ORDERED: ACETAMINOPHEN 500 MG TAB (TYLENOL) PO STA (10:11)
[2022-09-07] MEDS ORDERED: LACTATED RINGERS 1,000 ML IV STA (11:17)
[2022-09-07 12:13] LABS: BILIRUBIN,URINE 1+ (NEGATIVE); CLARITY,URINE CLEAR; COLOR,URINE YELLOW; GLUCOSE, URINE (UA) NEGATIVE (NEGATIVE); KETONES,URINE 3+ (NEGATIVE); LEUKOCYTE ESTERASE ,URINE NEGATIVE (NEGATIVE); NITRITE,URINE NEGATIVE (NEGATIVE); PROTEIN,URINE TRACE (NEGATIVE)
[2022-09-07 12:16] LABS: BACTERIA,URINE LARGE /HPF
== END 2022-09-07 12:50 | disposition home or self-care (01) ==
LOC: EDUNIT# 09:19 → ER FS 09:21
DX: O21.0 Mild hyperemesis gravidarum (principal); Z3A.15 15 weeks gestation of pregnancy
CPT/HCPCS: 36415; 80053; 81000; 83690; 85025; 87088

== ENCOUNTER 2022-09-24 07:42 | Emergency (ER) | payer MEDICAID ==
[~2022-09-24] VITALS: Ht 154 cm; Wt 70.0 kg
[2022-09-24 07:49] VITALS: BP_SYST 67
--- NOTE | 2022-09-24 07:57 | ED GI ---
General Chief Complaint: Abdominal/GI Problems Stated Complaint: N/V Source of Information: Patient, Old Records Exam Limitations: No Limitations History of Present Illness Date Seen by Provider: Sep 24, 2022 Time Seen by Provider: 07:46 Initial Comments 22-year-old female with a past medical history of chronic nausea and vomiting that is 17 weeks coming in due to roughly 12 hours of nonbloody nonbilious vomiting. She is taking her vitamin B6, doxylamine, and baby aspirin which she is on by her airplane pilot helper. Denies any severe abdominal pain, vaginal bleeding, loss of fluids like her water has broken, and she is just starting to feel baby move in this . Otherwise denying any other acute complaints including fever, diarrhea, chest pain, shortness of breath, weakness, numbness, rash, or any other concerns. Allergies and Home Medications Allergies Coded Allergies: No Known Drug Allergies (Unverified , 03/16/19) Patient Home Medication List Home Medication List Reviewed: Yes Amoxicillin (Amoxicillin) 500 Mg Capsule, (Reported) Entered as Reported by: DENILSON STEVENS on 12/05/201955 Doxylamine/Pyridoxine HCl (Jimenez Dr 10-10 mg Tablet) 10 Mg-10 Mg Tablet.dr, 1 EACH PO Q6H PRN for NAUSEA/VOMITING Prescribed by: LOS PINEDA on 06/29/22 105 Ibuprofen (Ibuprofen) 800 Mg Tablet, 800 MG PO Q8H PRN for PAIN Prescribed by: DIANE CHARLES on 11/26/20 0952 Metronidazole (Metronidazole) 500 Mg Tablet, (Reported) Entered as Reported by: DENILSON STEVENS on 12/05/201955 Ondansetron (Ondansetron Odt) 4 Mg Tab.rapdis, 4 MG PO Q6H PRN for NAUSEA/VOMITING Prescribed by: DIANE CHARLES on 03/16/19 2118 Ondansetron (Ondansetron Odt) 4 Mg Tab.rapdis, 4 MG SL Q4H PRN for NAUSEA/VOMITING Prescribed by: PAULINE TORREZ on 07/01/21 0930 Ondansetron (Ondansetron Odt) 4 Mg Tab.rapdis, 4 MG PO Q6H PRN for NAUSEA/VOMITING-1ST LINE Prescribed by: WILEY LOZOYA on 09/29/21 0634 Ondansetron (Ondansetron Odt) 4 Mg Tab.rapdis, 4 MG PO Q6H PRN for NAUSEA/VOMITING Prescribed by: DIANE CHARLES on 04/06/22 1003 Ondansetron (Ondansetron Odt) 4 Mg Tab.rapdis, 4 MG SL Q4H PRN for NAUSEA/VOMITING Prescribed by: SHANELL LAMB on 07/22/22 174 Ondansetron HCl (Ondansetron HCl) 4 Mg Tablet, (Reported) Entered as Reported by: DENILSON STEVENS on 12/05/201955 Pantoprazole Sodium (Pantoprazole Sodium) 40 Mg Tablet., (Reported) Entered as Reported by: DENILSON STEVENS on 12/05/201955 Promethazine HCl (Promethazine Tablet) 25 Mg Tablet, 25 MG PO Q6H PRN for NAUSEA/VOMITING-2ND LINE Prescribed by: WILEY LOZOYA on 09/29/21 0642 Promethazine HCl (Promethazine Tablet) 25 Mg Tablet, 25 MG PO Q6H PRN for NAUSEA/VOMITING Prescribed by: DIANE CHARLES on 07/08/22 1541 Promethazine HCl (Promethazine Suppository) 25 Mg Supp.rect, 25 MG RC Q6H PRN for NAUSEA/VOMITING-2ND LINE Prescribed by: DIANE CHARLES on 07/08/22 1541 Promethazine HCl (Promethazine Suppository) 25 Mg Supp.rect, 25 MG RC Q8H PRN for NAUSEA/VOMITING-2ND LINE Prescribed by: WILEY LOZOYA on 09/24/22 0851 Review of Systems Review of Systems Constitutional: No fever EENTM: No Symptoms Reported Respiratory: No Symptoms Reported Cardiovascular: No Symptoms Reported Gastrointestinal: See HPI Genitourinary: No Symptoms Reported Musculoskeletal: no symptoms reported Skin: no symptoms reported Psychiatric/Neurological: No Symptoms Reported Endocrine: No Symptoms Reported Hematologic/Lymphatic: No Symptoms Reported Past Fakcdrf-Wgoeup-Oykrvh Hx Patient Social History Tobacco Use?: No Use of E-Cig and/or Vaping dev: No Substance use?: No Immunizations Up To Date Tetanus Booster (TDap): Unknown PED Vaccines UTD: Yes First/Initial COVID19 Vaccinat: 01/2021 Second COVID19 Vaccination Eligio: 01/2021 Third COVID19 Vaccination Date: 01/2021 Seasonal Allergies Seasonal Allergies: No Past Medical History Surgery/Hospitalization HX: HIATAL HERNIA,Cyclic Vomiting Surgeries: Yes (D&C) Respiratory: No Cardiac: No Neurological: No Genitourinary: No Gastrointestinal: Yes Gastroesophageal Reflux, Hiatal Hernia Musculoskeletal: No Endocrine: No HEENT: No Cancer: No Psychosocial: No Integumentary: No Blood Disorders: No Family Medical History No Pertinent Family Hx Physical Exam Vital Signs Vital Signs - First Documented 09/24/22 07:49 Temp 36.1 Pulse 96 Resp 18 B/P (MAP) 67/ Pulse Ox 98 O2 Delivery Room Air Capillary Refill : Height/Weight/BMI Height: 5'1.00" Weight: 140lbs. oz. 63.674328pq; 28.00 BMI Method:Stated General Appearance: WD/WN, no apparent distress HEENT: PERRL/EOMI, normal ENT inspection, pharynx normal Neck: non-tender, full range of motion, supple, normal inspection Respiratory: chest non-tender, lungs clear, normal breath sounds, no respiratory distress, no accessory muscle use Cardiovascular: regular rate, rhythm, no edema, no murmur Gastrointestinal: normal bowel sounds, non tender, soft; No distended, No guarding, No rebound Extremities: normal range of motion, non-tender, normal inspection, no pedal edema, no calf tenderness, normal capillary refill Back: normal inspection, no CVA tenderness Neurologic/Psychiatric: no motor/sensory deficits, alert, normal mood/affect Skin: normal color, warm/dry Lymphatic: no adenopathy Progress/Results/Core Measures Results/Orders Lab Results Laboratory Tests Test 09/24/22 08:02 09/24/22 08:31 09/24/22 09:11 Range/Units White Blood Count 13.1 H 4.3-11.0 10^3/uL Red Blood Count 4.15 3.80-5.11 10^6/uL Hemoglobin 12.4 11.5-16.0 g/dL Hematocrit 36 35-52 % Mean Corpuscular Volume 86 80-99 fL Mean Corpuscular Hemoglobin 30 25-34 pg Mean Corpuscular Hemoglobin Concent 35 32-36 g/dL Red Cell Distribution Width 13.1 10.0-14.5 % Platelet Count 276 130-400 10^3/uL Mean Platelet Volume 10.0 9.0-12.2 fL Immature Granulocyte % (Auto) 1 % Neutrophils (%) (Auto) 86 H 42-75 % Lymphocytes (%) (Auto) 8 L 12-44 % Monocytes (%) (Auto) 5 0-12 % Eosinophils (%) (Auto) 0 0-10 % Basophils (%) (Auto) 0 0-10 % Neutrophils # (Auto) 11.2 H 1.8-7.8 10^3/uL Lymphocytes # (Auto) 1.1 1.0-4.0 10^3/uL Monocytes # (Auto) 0.7 0.0-1.0 10^3/uL Eosinophils # (Auto) 0.0 0.0-0.3 10^3/uL Basophils # (Auto) 0.0 0.0-0.1 10^3/uL Immature Granulocyte # (Auto) 0.1 0.0-0.1 10^3/uL Sodium Level 135 135-145 MMOL/L Potassium Level 3.7 3.6-5.0 MMOL/L Chloride Level 102 98-107 MMOL/L Carbon Dioxide Level 20 L 21-32 MMOL/L Anion Gap 13 5-14 MMOL/L Blood Urea Nitrogen 8 7-18 MG/DL Creatinine 0.49 L 0.60-1.30 MG/DL Estimat Glomerular Filtration Rate 138 BUN/Creatinine Ratio 16 Glucose Level 274 H 70-105 MG/DL Calcium Level 8.5 8.5-10.1 MG/DL Corrected Calcium 9.1 8.5-10.1 MG/DL Total Bilirubin 0.4 0.1-1.0 MG/DL Aspartate Amino Transf (AST/SGOT) 12 5-34 U/L Alanine Aminotransferase (ALT/SGPT) 10 0-55 U/L Alkaline Phosphatase 40 40-136 U/L Total Protein 6.0 L 6.4-8.2 GM/DL Albumin 3.3 3.2-4.5 GM/DL Lipase 35 8-78 U/L Urine Color YELLOW Urine Clarity CLEAR Urine pH 5.5 5-9 Urine Specific [place] 1.015 L 1.016-1.022 Urine Protein NEGATIVE NEGATIVE Urine Glucose (UA) 3+ H NEGATIVE Urine Ketones 3+ H NEGATIVE Urine Nitrite NEGATIVE NEGATIVE Urine Bilirubin NEGATIVE NEGATIVE Urine Urobilinogen 0.2 < = 1.0 MG/DL Urine Leukocyte Esterase NEGATIVE NEGATIVE Urine RBC (Auto) NEGATIVE NEGATIVE Urine RBC NONE /HPF Urine WBC 5-10 H /HPF Urine Squamous Epithelial Cells 25-50 H /HPF Urine Crystals NONE /LPF Urine Bacteria LARGE H /HPF Urine Casts NONE /LPF Urine Mucus SMALL H /LPF Urine Culture Indicated NO Glucometer 299 H 70-110 MG/DL My Orders Orders - WILEY LOZOYA MD Cbc With Automated Diff (09/24/22 07:50) Comprehensive Metabolic Panel (09/24/22 07:50) Drug Screen Stat (Urine) (09/24/22 07:50) Lipase (09/24/22 07:50) Ua Culture If Indicated (09/24/22 07:50) Ed Iv/Invasive Line Start (09/24/22 07:50) D5 Ns 1000 Ml Iv Solution (Dextrose 5%/0 (09/24/22 08:00) Ondansetron Injection (Zofran Injectio (09/24/22 08:00) Metoclopramide Injection (Reglan Injecti (09/24/22 08:00) Diphenhydramine Injection (Benadryl Inje (09/24/22 08:00) D5 Ns 1000 Ml Iv Solution (Dextrose 5%/0 (09/24/22 08:25) Manual Differential (09/24/22 08:02) Accucheck Stat ONCE (09/24/22 09:07) Medications Given in ED Current Medications Medications Dose Ordered Sig/Natali Route Start Time Stop Time Status Last Admin Dose Admin Dextrose/Sodium Chloride 1,000 ml @ 0 mls/hr Q0M ONCE IV 09/24/22 08:00 09/24/22 08:01 DC 09/24/22 08:00 1,000 MLS/HR Diphenhydramine HCl 25 mg ONCE ONCE IVP 09/24/22 08:00 09/24/22 08:01 DC 09/24/22 08:01 25 MG Metoclopramide HCl 10 mg ONCE ONCE IVP 09/24/22 08:00 09/24/22 08:01 DC 09/24/22 08:01 10 MG Ondansetron HCl 4 mg ONCE ONCE IVP 09/24/22 08:00 09/24/22 08:01 DC 09/24/22 08:00 4 MG Vital Signs/I&O 09/24/22 07:49 Temp 36.1 Pulse 96 Resp 18 B/P (MAP) 67/ Pulse Ox 98 O2 Delivery Room Air Progress Progress Note : Progress Note 22-year-old female with above history coming in due to vomiting while . ABCs were intact and vitals were stable on presentation. Physical exam reassuring including a soft and nontender abdomen. She does not have any clinical signs of miscarriage. An IV was placed and basic labs were obtained. She was given metoclopramide IV, Benadryl, Zofran, and IV fluids. Patient immediately stopped vomiting upon receiving the medications. Her white blood cell count is slightly elevated, similar to previous during , potassium is normal today, normal creatinine, normal LFTs, glucose was greater than 200 on the CMP. Repeat Accu-Chek also in the 200s. The patient is getting a solution in her IV of D5 NS, which I suspect is raising her glucose. I will discuss with her how she needs to have a repeat check with her PCP this week and may need to do a glucose tolerance test earlier in her . Urinalysis with large amount of bacteria. She is not having any dysuria, fever, suprapubic pain, however given her will treat with antibiotics. The patient was sent a prescription for rectal suppository Phenergan. I believe she is otherwise stable for discharge with outpatient follow-up. She was sent home with strict return precautions Departure Impression Primary Impression: Hyperemesis gravidarum Additional Impression: Asymptomatic bacteriuria during Disposition: 01 HOME, SELF-CARE Condition: Improved Departure-Patient Inst. Decision time for Depature: 09:20 Referrals: ELDA BAUMAN MD (PCP) Primary Care Physician Patient Instructions: Hyperemesis Gravidarum, Asymptomatic Bacteriuria Add. Discharge Instructions: Continue to use the medications that were prescribed by your airplane pilot helper. Phenergan suppositories were sent to your pharmacy in case you were to need those as well. You also have a large amount of bacteria in your urine, and during this can cause issues. You will be on antibiotics that are safe during for the next 5 days Scripts Nitrofurantoin Monohyd/M-Cryst (Macrobid 100 mg Capsule) 100 Mg Capsule 1 TAB PO BID for 5 Days, #10 CAP Prov: WILEY LOZOYA MD 3/15/23 Promethazine HCl (Promethazine Suppository) 25 Mg Supp.rect 25 MG RC Q8H PRN for NAUSEA/VOMITING-2ND LINE for 3 Days, #9 SUPP.RECT Prov: WILEY LOZOYA MD 09/24/22 Work/School Note: Family Work Note, Patient Received Medical Care In the Emergency Department On: Sep 24, 2022 Patient Will Be Able to Return to Work/School On: Sep 25, 2022 Work Release Form Date Seen in the Emergency Department: Sep 24, 2022 Return to Work: Sep 25, 2022 Restrictions: No Restrictions WILEY LOZOYA MD Sep 24, 2022 07:57
[2022-09-24] MEDS ORDERED: D5 NS 1000 ML IV SOLUTION 1,000 ML IV ONE (08:00)
[2022-09-24] MEDS ORDERED: diphenhydrAMINE 50 MG/ML INJ (BENADRYL) IVP ONE (08:00)
[2022-09-24] MEDS ORDERED: METOCLOPRAMIDE INJ 10 MG/2 ML (REGLAN) IVP ONE (08:00)
[2022-09-24] MEDS ORDERED: ONDANSETRON 4 MG/2 ML (SDV) Z0FRAN IVP ONE (08:00)
[2022-09-24 08:14] LABS: BASOPHILS % (AUTO) 0 % (0-10); EOSINOPHILS % (AUTO) 0 % (0-10); HEMATOCRIT 36 % (35-52); HEMOGLOBIN 12.4 g/dL (11.5-16.0); LYMPHOCYTES # (AUTO) 1.1 10^3/uL (1.0-4.0); LYMPHOCYTES % (AUTO) 8 % (12-44); MEAN CORPUSCULAR HEMOGLOBIN 30 pg (25-34); MEAN CORPUSCULAR HGB CONC 35 g/dL (32-36); MEAN CORPUSCULAR VOLUME 86 fL (80-99); MONOCYTES # (AUTO) 0.7 10^3/uL (0.0-1.0); MONOCYTES % (AUTO) 5 % (0-12); NEUTROPHILS # (AUTO) 11.2 10^3/uL (1.8-7.8); NEUTROPHILS % (AUTO) 86 % (42-75); PLATELET COUNT 276 10^3/uL (130-400); WHITE BLOOD COUNT 13.1 10^3/uL (4.3-11.0)
[2022-09-24] MEDS ORDERED: D5 NS 1000 ML IV SOLUTION 1,000 ML IV STA (08:25)
[2022-09-24] MEDS ORDERED: PROM25SU44 RC (08:51)
[2022-09-24 08:58] LABS: POTASSIUM 3.7 MMOL/L (3.6-5.0)
[2022-09-24 08:59] LABS: ALBUMIN 3.3 GM/DL (3.2-4.5); BILIRUBIN,TOTAL 0.4 MG/DL (0.1-1.0); CALCIUM 8.5 MG/DL (8.5-10.1); CREATININE SERUM 0.49 MG/DL (0.60-1.30)
[2022-09-24 09:04] LABS: BILIRUBIN,URINE NEGATIVE (NEGATIVE); CLARITY,URINE CLEAR; COLOR,URINE YELLOW; GLUCOSE, URINE (UA) 3+ (NEGATIVE); KETONES,URINE 3+ (NEGATIVE); LEUKOCYTE ESTERASE ,URINE NEGATIVE (NEGATIVE); NITRITE,URINE NEGATIVE (NEGATIVE); PH,URINE 5.5 (5-9); PROTEIN,URINE NEGATIVE (NEGATIVE)
[2022-09-24 09:13] LABS: BACTERIA,URINE LARGE /HPF; SQUAMOUS EPITHELIAL CELL,UR 25-50 /HPF
[2022-09-24] MEDS ORDERED: NITR-65 PO (09:17)
[2022-09-24 09:19] LABS: BAND NEUTROPHILS 3 %; NEUTROPHILS % (MANUAL) 83 %
[2022-09-24 09:20] LABS: AMPHETAMINE SCREEN, URINE NEGATIVE (NEGATIVE); BARBITURATE SCREEN URINE NEGATIVE (NEGATIVE); BENZODIAZEPINES SCREEN URINE NEGATIVE (NEGATIVE); CANNABINOID SCREEN, URINE POSITIVE (NEGATIVE); COCAINE SCREEN URINE NEGATIVE (NEGATIVE); METHADONE STAT NEGATIVE (NEGATIVE); OPIATE SCREEN URINE NEGATIVE (NEGATIVE); OXYCODONE STAT NEGATIVE (NEGATIVE); PROPOXYPHENE STAT NEGATIVE (NEGATIVE); TRICYCLIC ANTIDEPRESSANTS SCRE NEGATIVE (NEGATIVE)
[2022-09-24 09:20] LABS: LYMPHOCYTES % (MANUAL) 10 %; MONOCYTES % (MANUAL) 4 %; PLATELET ESTIMATE NORMAL; RBC MORPH NORMAL
== END 2022-09-24 09:25 | disposition home or self-care (01) ==
LOC: EDUNIT# 07:42 → ER FS 07:43
DX: O21.0 Mild hyperemesis gravidarum (principal); O23.42 Unspecified infection of urinary tract in pregnancy, second trimester; O99.112 Other diseases of the blood and blood-forming organs and certain disorders involving the immune mechanism complicating pregnancy, second trimester; R82.71 Bacteriuria; D72.829 Elevated white blood cell count, unspecified; Z3A.17 17 weeks gestation of pregnancy
CPT/HCPCS: 36415; 80053; 80306; 81000; 82947; 83690; 85007; 85027

== ENCOUNTER 2022-10-01 21:29 | Emergency (ER) | payer MEDICAID ==
[~2022-10-01] VITALS: Ht 155 cm; Wt 67.6 kg
[~2022-10-01 21:29] MED LIST changes: +NITR-65 PO
[2022-10-01 21:46] VITALS: BP 122/76
--- NOTE | 2022-10-01 22:08 | ED Abdominal Pain ---
General Chief Complaint: OB < 20 WEEKS Stated Complaint: NAUSEA|VOMITING Nursing Triage Note: PT AMB TO RM 5 W REPORTS OF VOMITING SX LAST NIGHT, WORSENING THROUGHOUT TODAY. HENSON BEGAN THIS EVENING. PT REPORTS SHE IS APPROX 18 WKS , A&OX4. Source of Information: Patient Exam Limitations: No Limitations History of Present Illness Date Seen by Provider: Oct 01, 2022 Time Seen by Provider: 22:05 Initial Comments Patient is a 22-year-old female who presents the ED with vomiting, abdominal cramping. Patient is G4, P0. She is currently 18 weeks . Following up with a press tool maker at . 3 previous miscarriages. Patient states she started having bilious vomiting since last night. She reports 20+ episodes. She reports vomiting throughout her other pregnancies. Patient states she has had intermittent vomiting throughout this . She is currently on promethazine suppository, B6, motion sickness medication, baby aspirin. She has had no previous abdominal surgeries. Denies of any urinary symptoms. She reports generalized abdominal cramping with the vomiting. She started developing head pain. Not able to keep any of her medication down or hold any fluids. She denies fever, chest pain, cough, sore throat, neck pain, dysuria, vaginal bleeding, diarrhea. Allergies and Home Medications Allergies Coded Allergies: No Known Drug Allergies (Unverified , 03/16/19) Patient Home Medication List Home Medication List Reviewed: Yes Amoxicillin (Amoxicillin) 500 Mg Capsule, (Reported) Entered as Reported by: DENILSON STEVENS on 12/05/201955 Doxylamine/Pyridoxine HCl (Jimenez Dr 10-10 mg Tablet) 10 Mg-10 Mg Tablet., 1 EACH PO Q6H PRN for NAUSEA/VOMITING Prescribed by: LOS PINEDA on 06/29/22 1056 Ibuprofen (Ibuprofen) 800 Mg Tablet, 800 MG PO Q8H PRN for PAIN Prescribed by: DIANE CHARLES on 11/26/20 0952 Metronidazole (Metronidazole) 500 Mg Tablet, (Reported) Entered as Reported by: DENILSON STEVENS on 12/05/201955 Nitrofurantoin Monohyd/M-Cryst (Macrobid 100 mg Capsule) 100 Mg Capsule, 1 TAB PO BID Prescribed by: WILEY LOZOYA on 09/24/22 0917 Ondansetron (Ondansetron Odt) 4 Mg Tab.rapdis, 4 MG PO Q6H PRN for NAUSEA/VOMITING Prescribed by: DIANE Henry ENYART on 03/16/19 2118 Ondansetron (Ondansetron Odt) 4 Mg Tab.rapdis, 4 MG SL Q4H PRN for NAUSEA/VOMITING Prescribed by: PAULINE TORREZ on 07/01/21 0930 Ondansetron (Ondansetron Odt) 4 Mg Tab.rapdis, 4 MG PO Q6H PRN for NAUSEA/VOMITING-1ST LINE Prescribed by: WILEY LOZOYA on 09/29/21 0634 Ondansetron (Ondansetron Odt) 4 Mg Tab.rapdis, 4 MG PO Q6H PRN for NAUSEA/VOMITING Prescribed by: DIANE CARREONRT on 04/06/22 1003 Ondansetron (Ondansetron Odt) 4 Mg Tab.rapdis, 4 MG SL Q4H PRN for NAUSEA/VOMITING Prescribed by: SHANELL LAMB on 07/22/22 174 Ondansetron HCl (Ondansetron HCl) 4 Mg Tablet, (Reported) Entered as Reported by: DENILSON STEVENS on 12/05/201955 Pantoprazole Sodium (Pantoprazole Sodium) 40 Mg Tablet., (Reported) Entered as Reported by: DENILSON STEVENS on 12/05/201955 Promethazine HCl (Promethazine Tablet) 25 Mg Tablet, 25 MG PO Q6H PRN for NAUSEA/VOMITING-2ND LINE Prescribed by: WILEY LOZOYA on 09/29/21 0642 Promethazine HCl (Promethazine Tablet) 25 Mg Tablet, 25 MG PO Q6H PRN for NAUSE A/VOMITING Prescribed by: DIANE TEJADAYART on 07/08/22 1541 Promethazine HCl (Promethazine Suppository) 25 Mg Supp.rect, 25 MG RC Q6H PRN for NAUSEA/VOMITING-2ND LINE Prescribed by: DIANE Henry ENYART on 07/08/22 1541 Promethazine HCl (Promethazine Suppository) 25 Mg Supp.rect, 25 MG RC Q8H PRN for NAUSEA/VOMITING-2ND LINE Prescribed by: WILEY LOZOYA on 09/24/22 0851 Review of Systems Review of Systems Constitutional: No chills, No diaphoresis; malaise, weakness EENTM: No Eye Pain Respiratory: Denies Cough Cardiovascular: Denies Chest Pain Gastrointestinal: Abdominal Pain; Denies Diarrhea; Nausea, Vomiting Genitourinary: Denies Burning, Denies Discharge, Denies Drainage, Denies Frequency, Denies Flank Pain Musculoskeletal: No back pain, No joint pain Skin: No change in color, No change in hair/nails All Other Systems Reviewed Negative Unless Noted: Yes Past Uvxgjwc-Lzlwku-Eggdne Hx Patient Social History Tobacco Use?: No Use of E-Cig and/or Vaping dev: Yes E-Cig or Vaping type used: Nicotine Use of E-Cig and/or Vaping Stephon: Current Everyday User Substance use?: No Alcohol Use?: No Immunizations Up To Date Tetanus Booster (TDap): Unknown PED Vaccines UTD: Yes First/Initial COVID19 Vaccinat: 01/2021 Second COVID19 Vaccination Eligio: 01/2021 Third COVID19 Vaccination Date: NONE 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: [employer] Seasonal Allergies Seasonal Allergies: No Past Medical History Surgery/Hospitalization HX: HIATAL HERNIA,Cyclic Vomiting Surgeries: Yes (D&C) Respiratory: No Cardiac: No Neurological: No Expected Date of Delivery: Mar 02, 2023 Genitourinary: No Gastrointestinal: Yes Gastroesophageal Reflux, Hiatal Hernia Musculoskeletal: No Endocrine: No HEENT: No Cancer: No Psychosocial: No Integumentary: No Blood Disorders: No Family Medical History No Pertinent Family Hx Physical Exam Vital Signs Vital Signs - First Documented 10/01/22 21:46 Temp 36.6 Pulse 96 Resp 20 B/P (MAP) 122/76 (91) Pulse Ox 100 O2 Delivery Room Air Capillary Refill : Less Than 3 Seconds Height/Weight/BMI Height: 5'1.00" Weight: 140lbs. oz. 63.480614lo; 28.00 BMI Method:Stated General Appearance: WD/WN, no apparent distress HEENT: PERRL/EOMI, normal ENT inspection, TMs normal, pharynx normal Neck: non-tender, full range of motion, supple Respiratory: chest non-tender, lungs clear, normal breath sounds, no respiratory distress, no accessory muscle use Cardiovascular: regular rate, rhythm, no edema, no gallop, no JVD Gastrointestinal: normal bowel sounds, soft, no organomegaly, tenderness (Generalized abdominal tenderness.) Extremities: normal range of motion, non-tender, normal inspection, no pedal edema, no calf tenderness Back: normal inspection, no CVA tenderness, no vertebral tenderness Neurologic/Psychiatric: glycerin supervisor II-XII nml as tested, no motor/sensory deficits, alert, normal mood/affect, oriented x 3 Skin: normal color, warm/dry Progress/Results/Core Measures Results/Orders My Orders Orders - WILEY DURBIN Ua Culture If Indicated (10/01/22 21:43) Hcg,Qualitative Urine (10/01/22 21:43) Cbc With Automated Diff (10/01/22 22:03) Comprehensive Metabolic Panel (10/01/22 22:03) Lipase (10/01/22 22:03) Hcg,Quantitative (10/01/22:) Heart Tones (10/01/22 22:03) Metoclopramide Injection (Reglan Injecti (10/01/22 22:15) Vital Signs/I&O 10/01/22 21:46 Temp 36.6 Pulse 96 Resp 20 B/P (MAP) 122/76 (91) Pulse Ox 100 O2 Delivery Room Air Blood Pressure Mean: 91 Departure Communication (PCP) Due toPatient is G4, P0 with a history of 3 miscarriages. Presents ED with generalized abdominal pain with vomiting since last night. 18 weeks . 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 Due to her current presentation recommended CBC, CMP, IV fluids, IV antiemetics, cardiac activity. She denies of any vaginal bl eeding suggesting concern for miscarriage. Abdominal pain is generalized likely secondary to the vomiting. Reviewed previous ER visits, H&P's, lab work. She has been seen here several visit prior for hyperemesis gravidarum. 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 Patient does have antiemetics at home but was not able to keep her medication down. Patient was vaping in the room. The nurse contacted the patient regarding the vaping and patient became upset and walked out of the room without me knowing. I was not able to redirect the patient and keep the patient here for lab work, IV fluids and nausea medication. Concern with patient is dehydration, electrolyte abnormality. Impression Primary Impression: Nausea and vomiting during Disposition: AGAINST MEDICAL ADVICE Condition: Against Medical Advice Departure-Patient Inst. Decision time for Depature: 22:40 Referrals: ELDA BAUMAN MD (PCP/Family) Primary Care Physician WILEY DURBIN Oct 01, 2022 22:08
[2022-10-01] MEDS ORDERED: METOCLOPRAMIDE INJ 10 MG/2 ML (REGLAN) IVP ONE (22:15)
[2022-10-01] MEDS ORDERED: Vit B6 (23:27)
== END 2022-10-01 22:10 | disposition left against medical advice (07) ==
LOC: EDUNIT# 21:29 → ER 21:30
DX: O21.9 Vomiting of pregnancy, unspecified (principal); O26.892 Other specified pregnancy related conditions, second trimester; R10.84 Generalized abdominal pain; O99.332 Smoking (tobacco) complicating pregnancy, second trimester; F17.290 Nicotine dependence, other tobacco product, uncomplicated; Z3A.18 18 weeks gestation of pregnancy
CPT/HCPCS: 99281

== ENCOUNTER 2022-10-01 22:47 | Emergency (ER) | payer MEDICAID ==
[~2022-10-01] VITALS: Ht 154.9 cm; Wt 64.7 kg
[2022-10-01] MEDS ORDERED: NS IV 1000 ML 1,000 ML IV STA ×2 (22:55→23:55)
[2022-10-01] MEDS ORDERED: PROMETHAZINE INJ 25 MG/ML (PHENERGAN) AMP IVP STA (22:56)
[2022-10-01] MEDS ORDERED: ONDANSETRON 4 MG/2 ML (SDV) Z0FRAN IVP STA (22:56)
[2022-10-01] MEDS ORDERED: diphenhydrAMINE 50 MG/ML INJ (BENADRYL) IVP STA (22:56)
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
[2022-10-01 23:12] LABS: BASOPHILS % (AUTO) 0 % (0-10); EOSINOPHILS % (AUTO) 0 % (0-10); HEMATOCRIT 33 % (35-52); HEMOGLOBIN 11.6 g/dL (11.5-16.0); LYMPHOCYTES # (AUTO) 1.2 10^3/uL (1.0-4.0); LYMPHOCYTES % (AUTO) 10 % (12-44); MEAN CORPUSCULAR HEMOGLOBIN 30 pg (25-34); MEAN CORPUSCULAR HGB CONC 35 g/dL (32-36); MEAN CORPUSCULAR VOLUME 86 fL (80-99); MONOCYTES # (AUTO) 0.6 10^3/uL (0.0-1.0); MONOCYTES % (AUTO) 5 % (0-12); NEUTROPHILS # (AUTO) 10.5 10^3/uL (1.8-7.8); NEUTROPHILS % (AUTO) 84 % (42-75); PLATELET COUNT 258 10^3/uL (130-400); WHITE BLOOD COUNT 12.4 10^3/uL (4.3-11.0)
[2022-10-01] MEDS ORDERED: Vit B6 (23:27)
[2022-10-01 23:36] LABS: POTASSIUM 3.6 MMOL/L (3.6-5.0)
[2022-10-01 23:37] LABS: BILIRUBIN,TOTAL 0.4 MG/DL (0.1-1.0); CALCIUM 9.4 MG/DL (8.5-10.1); CREATININE SERUM 0.43 MG/DL (0.60-1.30); TOTAL PROTEIN 7.3 GM/DL (6.4-8.2)
[2022-10-01 23:57] LABS: CLARITY,URINE CLOUDY; COLOR,URINE YELLOW; GLUCOSE, URINE (UA) NEGATIVE (NEGATIVE); KETONES,URINE 3+ (NEGATIVE); LEUKOCYTE ESTERASE ,URINE NEGATIVE (NEGATIVE); NITRITE,URINE NEGATIVE (NEGATIVE); PROTEIN,URINE 1+ (NEGATIVE)
[2022-10-02 00:06] LABS: BACTERIA,URINE MODERATE /HPF; RBC,URINE RARE /HPF; WBC,URINE 0-2 /HPF
[2022-10-02 00:07] LABS: BILIRUBIN,URINE 1+ (NEGATIVE)
[2022-10-02 00:35] VITALS: BP 128/55
== END 2022-10-02 00:35 | disposition home or self-care (01) ==
LOC: EDUNIT# 22:47 → ER FS 22:49
DX: O21.0 Mild hyperemesis gravidarum (principal); Z28.310 Unvaccinated for COVID-19; Z3A.18 18 weeks gestation of pregnancy
CPT/HCPCS: 36415; 80053; 81000; 83690; 85025